=== PATIENT | female | born 1945 | race Caucasian/White ===

== ENCOUNTER 2017-06-06 18:40 | Inpatient (IN) | payer MEDICARE, SELFPAY ==
[2017-06-06 18:56] VITALS: BP 160/93; PULSE 90; RESP 18; TEMP 36.6; O2SAT 97; BMI 36.6
--- NOTE | 2017-06-06 19:13 | CT_ITS ---
CT head/brain wo con HISTORY: Mental status change, altered mental status, memory loss, confusion ITS.REASON: change in mental status ORDERING PHYSICIAN: Servando Esquivel MD PATIENT AGE: 71 years COMPARISON: None TECHNIQUE: Axial images obtained without contrast. Brain and bone windows reviewed. FINDINGS: No midline shift, mass effect, intracranial hemorrhage, hydrocephalus, or extra-axial fluid collection is evident. Decreased attenuation within the right caudate head and anterior limb of internal capsule consistent with old lacunar infarction. Mild ex vacuo dilatation of the anterior horn of the right lateral ventricle The calvarium has an unremarkable appearance. No mastoid effusion. No sinus air-fluid levels.. IMPRESSION: 1. No acute finding. 2. 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
[2017-06-06 19:32] LABS: ABG Base Excess -22.2 mmol/L (-2.4-2.3); ABG HCO3 6.4 mmhg (22.0-26.0); ABG Oxygen Saturation 95 % (90-100); ABG PO2 91.2 mmhg (80-100); ABG TCO2 6.9 mmhg (23-27)
[2017-06-06 19:33] LABS: ABG PH 7.17 mmol/L (7.35-7.45); Allen's Test Y; Oxygen R/A %; Source R/R
[2017-06-06 19:34] LABS: ABG PCO2 18.1 mmhg (35.0-45.0)
[2017-06-06 19:42] LABS: Basophils # 0.1 K/mm3 (0-0.2); Basophils % 0.3 % (0.1-2.0); Eosinophils % 0.1 % (0.1-12.0); Hematocrit 49.5 % (37.0-47.0); Hemoglobin 14.2 g/dL (12.2-16.2); Lymphocytes # 0.9 K/mm3 (0.7-4.5); Lymphocytes % 5.9 K/mm3 (10-50); Mean Corpuscular HGB Conc 28.6 g/dL (31.8-35.4); Mean Corpuscular Hemoglobin 29.7 pg (27.0-31.2); Mean Corpuscular Volume 103.8 fl (81-99); Monocytes # 0.7 K/mm3 (0.1-1.0); Monocytes % 4.6 % (1.7-9.3); Neutrophils # 14.3 K/mm3 (1.8-7.8); Platelet Count 439 K/mm3 (142-424); Red Blood Count 4.77 M/mm3 (4.20-5.40); Red Cell Distribution Width 12.8 % (11.5-17.5); White Blood Count 16.1 K/mm3 (4.8-10.8)
[2017-06-06 19:48] LABS: Lipase 75 u/L (73-393)
[2017-06-06 19:58] VITALS: BP 104/58; PULSE 96; RESP 16; O2SAT 97
[2017-06-06 20:04] LABS: MANUAL DIFFERENTIAL MANUAL DIFFERENTIAL (MANUAL DIFF)
[2017-06-06 20:06] LABS: Alanine Aminotransferase 30 U/L (12-78); Albumin Level 3.1 gm/dL (3.4-5.0); Albumin/Globulin Ratio 0.6 (1.1-1.8); Alkaline Phosphatase 157 U/L (46-116); Amylase 13 U/L (25-125); Anion Gap 41.9 mEq/L (5-15); Aspartate Amino Transferase 13 U/L (15-37); Bilirubin,Total 0.5 mg/dL (0.2-1.0); Blood Urea Nitrogen 53 mg/dL (7-18); CKMB Relative Index 3.9 U/L (0-4.0); Calcium 9.9 mg/dL (8.5-10.1); Chloride 89 mmol/L (98-107); Creatine Kinase 46 U/L (26-192); Creatine Kinase MB 1.8 mg/ml (0.0-3.6); Creatinine Clearance Estimated 31 mL/min (0-300); Estimated Glomerular Filt Rate 20 ml/min (>60); GFR (African American) 24 ML/MIN (>60); Globulin 4.9 gm/dl (1.3-3.2); Potassium 5.9 mmoL/L (3.5-5.1); Sodium 133 mmol/L (136-145); Troponin I < 0.02 ng/ml (0.00-0.06)
--- NOTE | 2017-06-06 20:06 | HMH.EDWEAK ---
ED Disposition Clinical Impression: DKA (diabetic ketoacidoses) Qualifiers: Diabetes mellitus type: type 2 Diabetes mellitus complication detail: without coma Qualified Code(s): E11.10 - Type 2 diabetes mellitus with ketoacidosis without coma Disposition: Admitted As Inpatient Condition on Discharge: Serious Referrals: Cintia Small PA [Primary Care Provider] - Time of Disposition: 20:06 - Critical Care Critical Care Time: Yes Attestation: On 06/06/17, the high probability of a clinically significant, sudden or life threatening deterioration of the following system(s) required my full and direct attention, intervention and personal management. The time I documented below is in addition to time spent performing reported procedures but includes the following listed in this critical care notation. Total Critical Care Time: 120 Vital system(s) involved:: Circulatory Failure, Metabolic Failure My critical care processes included: Assessment & monitoring of V/S, Initial and Re-exams, Data Review/Interpretation, Coordinating Care, Medication Orders and management, Documentation Medical Decision Making - Medical Records Medical records reviewed: Yes: I reviewed the patient's medical records. Vital Signs: 06/06/17 18:56 06/06/17 19:58 Temperature 98 F Temperature Source Oral Pulse Rate [Right Brachial] 90 96 H Respiratory Rate 18 16 Blood Pressure [Right Arm] 160/93 104/58 Blood Pressure Mean [Right Arm] 115 73 02 Sat by Pulse Oximetry 97 97 Oxygen Delivery Method Room Air Room Air - Lab Data Lab results reviewed: Yes: I reviewed the patient's lab results. Lab Results 06/06/17 19:20: WBC 16.1 H, RBC 4.77, Hgb 14.2, Hct 49.5 H, MCV 103.8 H, MCH 29.7, MCHC 28.6 L, RDW 12.8, Plt Count 439 H, MPV 9.0, Neut % (Auto) 89.0 H, Lymph % (Auto) 5.9 L, [facility] % (Auto) 4.6, Eos % (Auto) 0.1, Baso % (Auto) 0.3, Neut # (Auto) 14.3 H, Lymph # (Auto) 0.9, [facility] # (Auto) 0.7, Eos # (Auto) 0.0, Baso # (Auto) 0.1 06/06/17 19:20: Sodium 133 L, Potassium 5.9 H, Chloride 89 L, Carbon Dioxide 8 L*, Anion Gap 41.9 H, BUN 53 H, Creatinine 2.40 H, Estimated Creat Clear 31, Estimated GFR 20 L, Est GFR ( Amer) 24 L, Glucose 1012 H*, Calcium 9.9, Total Bilirubin 0.5, AST 13 L, ALT 30, Alkaline Phosphatase 157 H, Total Creatine Kinase 46, CK-MB (CK-2) 1.8, CK-MB (CK-2) Rel Index 3.9, Troponin I < 0.02, Total Protein 8.0, Albumin 3.1 L, Globulin 4.9 H, Albumin/Globulin Ratio 0.6 L, Amylase 13 L 06/06/17 19:20: Lipase 75 06/06/17 19:20: Acetone Level Moderate 06/06/17 19:30: Specimen Source R/r, O2 % R/a, ABG pH 7.17 L*, ABG pCO2 18.1 L, ABG pO2 91.2, ABG HCO3 6.4 L, ABG Total CO2 6.9 L, ABG O2 Saturation 95, ABG Base Excess -22.2 L, Onesimo Test Y Result diagrams: 06/06/17 19:20 06/06/17 19:20 Orders (Tests/Meds): ED MEDICATIONS Generic Name Dose Route Start Last Admin Trade Name Freq PRN Reason Stop Dose Admin Insulin Human Regular 100 unit 101 mls @ 2.02 mls/hr 06/06/17 19:45 / Sodium Chloride IV 07/06/17 19:44 .Q25H MYNOR Protocol 2 UNIT/HR Discontinued Medications Generic Name Dose Route Start Last Admin Trade Name Freq PRN Reason Stop Dose Admin Sodium Chloride 1,000 mls @ 999 mls/hr 06/06/17 19:15 06/06/17 19:20 Sod Chloride 0.9% 1000ml Bag IV 06/06/17 20:15 999 mls/hr .Q1H1M MYNOR Administration Insulin Human Regular 10 unit 06/06/17 19:08 06/06/17 19:21 Humulin R Insulin 100 Units/Ml 10ml Vial IVP 06/06/17 19:09 10 unit ONCE ONE Administration Ondansetron HCl 4 mg 06/06/17 19:04 06/06/17 19:20 Zofran 4mg/2ml Vial IV 06/06/17 19:05 4 mg ONCE ONE Administration Sodium Bicarbonate 4 meq 06/06/17 19:38 Sodium Bicarbonate 8.4% 50ml Vial IV 06/06/17 19:39 ONCE ONE Sodium Bicarbonate 50 meq 06/06/17 19:39 Sodium Bicarbonate 8.4% 50ml Syringe IV 06/06/17 19:40 ONCE ONE Sodium Bicarbonate 50 meq 06/06/17 19:40 Sodium Bicarbonat
[2017-06-06 20:19] LABS: Carbon Dioxide 8 mmol/L (21.0-32.0)
[2017-06-06 20:21] LABS: Glucose 1012 mg/dL (74-106)
--- NOTE | 2017-06-06 20:23 | PC.NURSE ---
critical lab glucose 1012 given to
[2017-06-06 20:33] LABS: Acetone, Serum (Rapid) Moderate (None Detect)
--- NOTE | 2017-06-06 20:59 | PC.NURSE ---
2039 spoke with Alec in pharmacy related to insulin drip.
--- NOTE | 2017-06-06 21:01 | PC.NURSE ---
2045 Insulin drip at 5 units per hour.
[2017-06-06 21:31] LABS: ABG Base Excess -20.6 mmol/L (-2.4-2.3); ABG HCO3 7.5 mmhg (22.0-26.0); ABG Oxygen Saturation 97 % (90-100); ABG PO2 99.4 mmhg (80-100); ABG TCO2 8.1 mmhg (23-27)
[2017-06-06 21:32] LABS: Allen's Test Y; Oxygen R/A %; Source R/R
[2017-06-06 21:33] LABS: ABG PCO2 19.9 mmhg (35.0-45.0); ABG PH 7.19 mmol/L (7.35-7.45)
[2017-06-06 21:40] LABS: Burr Cells 1+; Lymphocytes % 3 % (10-50); Monocytes % 3 % (2-9); Neutrophils % 86 % (42-76); Platelet Estimate Normal; Total Cells Counted 100
[2017-06-06 22:01] VITALS: BMI 36.6
--- NOTE | 2017-06-06 22:10 | PC.NURSE ---
called report to feli
[2017-06-06 22:22] VITALS: BP 171/77; PULSE 90; RESP 16; TEMP 36.7
[2017-06-06 22:30] VITALS: O2SAT 96
[2017-06-06 23:00] VITALS: BP 171/77; PULSE 95; O2SAT 97
[2017-06-06 23:43] LABS: Microscopic, Urine URINE MICROSCOPIC (MICROSCOPIC)
[2017-06-06 23:57] LABS: Glucose,Random 553 mg/dL (70-110)
[2017-06-07] VITALS (14 sets, daily range): BP systolic 114–194; BP diastolic 52–92; PULSE 71–90; RESP 14–20; TEMP 37.2; O2SAT 90–97; BMI 33.0
--- NOTE | 2017-06-07 00:37 | PC.NURSE ---
PT DOES NOT KNOW HER MEDS. STATED 30 AND A CHOLESTEROL MED BUT SHE DOES NOT KNOW THE NAMES OF MEDS OR WHEN SHE TOOK THEM LAST.
[2017-06-07 00:54] LABS: Appearance,Urine CLEAR (Clear); Bilirubin,Urine Negative (Negative); Blood, Urine TRACE-L (Negative); Color,Urine YELLOW (Yellow); Glucose,Urine (UA) 2+ (Negative); Ketones,Urine 3+ (Negative); Leukocyte Esterase,Urine Negative (Negative); Nitrate,Urine Negative (Negative); PH,Urine 5.5 (5.0-8.5); Protein,Urine TRACE (Negative); Urobilinogen,Urine 0.2 EU/dl (0.2)
[2017-06-07 01:14] LABS: POC Glucose,Bedside 468 mg/dL
--- NOTE | 2017-06-07 03:15 | PC.NURSE ---
PT IS ALERT WITH CONFUSION. SHE HAS BEEN PULLING OFF HER HEART MONITOR LEADS, AND TRYING TO GET OUT OF BED STATING SHE HAS TO PEE, AND YELLING OUT SOMEONE'S NAME. PT REMINDED THAT SHE HAS A F/C. HER URINE IS YELLOW, CLEAR. SHE HAS AN AREA ON HER LEFT LABIA THAT IS DRAINING BROWNISH BLOOD. CULTURE WAS SENT TO LAB. SHE CONTINUES ON INSULIN GTT.
[2017-06-07 03:38] LABS: POC Glucose,Bedside 342 mg/dL
[2017-06-07 03:59] LABS: Bacteria,Urine 1+ /lpf; WBC,Urine Occasional #/hpf (0-3)
[2017-06-07 05:29] LABS: POC Glucose,Bedside 238 mg/dL
[2017-06-07 06:29] LABS: POC Glucose,Bedside 195 mg/dL
--- NOTE | 2017-06-07 07:19 | PC.NURSE ---
report received at 0650 from s call rn
[2017-06-07 07:37] LABS: Acetone, Serum (Rapid) Small (None Detect)
--- NOTE | 2017-06-07 07:37 | HMH.PHAVTE ---
[facility] Pharmacy VTE Monitoring - Patient Demographics Admission date: 06/06/17 Report Date: 06/07/17 Time: 07:37 Allergies/Adverse Reactions: Patient Allergies No Known Drug Allergies Allergy (Unknown, Verified 06/06/17 19:01) Height: 1.57 m Weight: 81.6 kg Patient Problems: Current Active Problems DKA (diabetic ketoacidoses) (Acute) - VTE Risk Labs: VTE Related Lab Results Hgb 14.2 g/dL (12.2-16.2) 06/06/17 19:20 Hct 49.5 % (37.0-47.0) H 06/06/17 19:20 Plt Count 439 K/mm3 (142-424) H 06/06/17 19:20 BUN 53 mg/dL (7-18) H 06/06/17 19:20 Creatinine 2.40 mg/dL (0.55-1.02) H 06/06/17 19:20 Estimated Creat Clear 31 mL/min (0-300) 06/06/17 19:20 VTE Score: 3 VTE Risk Level: Low Risk Clinical Trial Participant: No - Prophylaxis VTE Prophylaxis Ordered?: Yes Types of VTE Prophylaxis: TEDS Knee High Location of Applied Device: Bilateral Lower Extremeties
[2017-06-07 07:42] LABS: POC Glucose,Bedside > 600 mg/dL
[2017-06-07 07:42] LABS: POC Glucose,Bedside > 600 mg/dL
[2017-06-07 07:42] LABS: POC Glucose,Bedside > 600 mg/dL
--- NOTE | 2017-06-07 08:42 | HMH.HP ---
*Admission Date: 06/06/17 *Chief complaint: vomiting *History of present illness: this iddm wf with vomiting and progressive decline This is a 71-year-old female, patient brought to the emergency room by family members after they realized that her glucometer would no longer read her fingerstick anymore (as being out of scale). Patient has been sick for the past 3 days, with intractable nausea and vomiting, unable to take any of her diabetic medications, unable to hold any solids food, or liquids down. Family is unsure of the patient's medications at this time, as patient is unable to give any details. [facility] History I have reviewed the patient's past medical history: Yes Medical History: Reports:: Diabetes Mellitus Type 2 Denies:: MRSA - *Social History Educational Level: Attended High School Smoking Status: Never smoker Alcohol Intake: never Occupational Status: retired Housing: house Household Members: family, children, friend(s) - Psychiatric History Expresses thoughts of harming self/others: None Suicide Plan Description: No Plan *Family Hx:: Stroke Review of Systems - Review of Systems Review of systems:: pertinent systems reviewed and negative unless documented below - Constitutional Reports chills, Reports fatigue, Denies fever(s) - Eyes Reports change in vision - ENT Denies sore throat - *Cardiovascular Denies chest pain at rest - *Respiratory Denies chest congestion - *Gastrointestinal Reports abdominal pain, Reports nausea, Reports vomiting - *Musculoskeletal Denies joint pain, Denies joint swelling - Integumentary/Breasts Denies rash - *Neurologic Reports weakness, Reports other (Lethargic), Denies seizure-like activity - Endocrine Reports increased thirst Meds Home Medications Medication Instructions Recorded Confirmed Type Unobtainable [Unobtainable] 06/07/17 06/07/17 History Allergies Allergy/AdvReac Type Severity Reaction Status Date / Time No Known Drug Allergies Allergy Unknown Verified 06/06/17 19:01 Exam Vital signs and Labs for Last 24 Hours: Temp Pulse Resp BP Pulse Ox 98 F 77 16 145/56 93 L 06/06/17 18:56 06/07/17 06:00 06/06/17 19:58 06/07/17 06:00 06/07/17 06:00 Laboratory Results - last 24 hr 06/06/17 22:41: Urine Color Yellow, Urine Appearance Clear, Urine pH 5.5, Ur Specific [place] 1.020, Urine Protein Trace, Urine Glucose (UA) 2+, Urine Ketones 3+, Urine Blood Trace-l, Urine Nitrate Negative, Urine Bilirubin Negative, Urine Urobilinogen 0.2, Ur Leukocyte Esterase Negative, Urine WBC Occasional, Urine Bacteria 1+ 06/06/17 23:07: POC Glucose > 600 06/06/17 23:30: Random Glucose 553 H* 06/07/17 01:03: POC Glucose 468 06/07/17 03:29: POC Glucose 342 06/07/17 05:22: POC Glucose 238 06/07/17 06:00: Acetone Level Small 06/07/17 06:23: POC Glucose 195 I & O for Last 24 hours: Intake & Output 06/04/17 06/05/17 06/06/17 06/07/17 11:59 11:59 11:59 11:59 Intake Total 1035 / 1035 Output Total 1340 / 1340 Balance -305 / -305 Weight 179 lb 14.355 oz - Constitutional no acute distress - *Routine HEENT Exam Head: Present: normocephalic, atraumatic Eye: Present: EOMI, PERRL ENT: Present: mucous membranes dry - *Routine Neck Exam Present: supple - *Routine Respiratory Exam Present: decreased breath sounds - *Routine Cardiovascular Exam Present: RRR, tachycardia - *Routine Abdominal Exam Present: soft. Absent: tenderness, distended - *Routine Extremities Exam Absent: calf tenderness - *Routine Skin Exam Comments: lt labial abscess - *Routine Neurological Exam Present: alert, oriented X3, CN II-XII intact - Routine Psychiatric Exam Present: normal affect H&P: Result - Labs Labs: Urine 06/06/17 Range/Units 22:41 Urine Color Yellow (Yellow) Urine Appearance Clear (Clear) Urine pH 5.5 (5.0-8.5) Ur Specific [place] 1.020 (1.005-1.030) Urine Prot
--- NOTE | 2017-06-07 09:32 | HMH.GYNCON ---
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 Ivey is a 71 year old female CC: Servando Esquivel MD Review of Systems - Review of Systems Review of systems:: pertinent systems reviewed and negative unless documented below - *Neurologic Reports weakness, Reports other (Lethargic), Denies seizure-like activity [facility] History I have reviewed the patient's past medical history: Yes Medical History: Reports:: Diabetes Mellitus Type 2 Denies:: MRSA - *Social History Educational Level: Attended High School Smoking Status: Never smoker Alcohol Intake: never Occupational Status: retired Housing: house Household Members: family, children, friend(s) - Psychiatric History Expresses thoughts of harming self/others: None Suicide Plan Description: No Plan *Family Hx:: Stroke Meds Home Medications Medication Instructions Recorded Confirmed Type Unobtainable [Unobtainable] 06/07/17 06/07/17 History Allergies Allergy/AdvReac Type Severity Reaction Status Date / Time No Known Drug Allergies Allergy Unknown Verified 06/06/17 19:01 LABEL FUSER TENDER - Exam Vital signs: Temp Pulse Resp BP Pulse Ox 98 F 77 16 145/56 93 L 06/06/17 18:56 06/07/17 06:00 06/06/17 19:58 06/07/17 06:00 06/07/17 06:00 - Constitutional no acute distress - Routine Exam Patient deferred: groin exam, perineal exam External: Present: discharge - Detailed Pelvic Exam Vulva: Present: lesion (She has erythema and foul-smelling discharge from the left vulva. She has induration) LABEL FUSER TENDER - Results - Labs CBC & Chem 7: 06/06/17 19:20 06/06/17 19:20 Labs: Urine 06/06/17 Range/Units 22:41 Urine Color Yellow (Yellow) Urine Appearance Clear (Clear) Urine pH 5.5 (5.0-8.5) Ur Specific [place] 1.020 (1.005-1.030) Urine Protein Trace (Negative) Urine Glucose (UA) 2+ (Negative) Assessment and Plan (1) Labial abscess Current visit: Yes Status: Acute Category: Medical Code(s): N76.4 - Abscess of vulva (2) IDDM (insulin dependent diabetes mellitus) Current visit: Yes Status: Acute Category: Medical Code(s): E11.9 - Type 2 diabetes mellitus without complications; Z79.4 - MCFP (current) use of insulin - Assessment and plan all Dx Assessment and Plan for all problems:: She has a draining vulvar lesion. Swabs have been taken. At this point in time since the lesion is draining and she is on vancomycin for his infection at this point in time I would not do anything. She might benefit from sits baths and I have asked the nurse to clean up the area with some peroxide and water.
--- NOTE | 2017-06-07 09:35 | P.CONS_ITS ---
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 Ivey is a 71 year old female CC: Servando Esquivel MD Review of Systems - Review of Systems Review of systems:: pertinent systems reviewed and negative unless documented below - *Neurologic Reports weakness, Reports other (Lethargic), Denies seizure-like activity [facility] History I have reviewed the patient's past medical history: Yes Medical History: Reports:: Diabetes Mellitus Type 2 Denies:: MRSA - *Social History Educational Level: Attended High School Smoking Status: Never smoker Alcohol Intake: never Occupational Status: retired Housing: house Household Members: family, children, friend(s) - Psychiatric History Expresses thoughts of harming self/others: None Suicide Plan Description: No Plan *Family Hx:: Stroke Meds Home Medications Medication Instructions Recorded Confirmed Type Unobtainable [Unobtainable] 06/07/17 06/07/17 History Allergies Allergy/AdvReac Type Severity Reaction Status Date / Time No Known Drug Allergies Allergy Unknown Verified 06/06/17 19:01 TAP OUT OPERATOR - Exam Vital signs: Temp Pulse Resp BP Pulse Ox 98 F 77 16 145/56 93 L 06/06/17 18:56 06/07/17 06:00 06/06/17 19:58 06/07/17 06:00 06/07/17 06:00 - Constitutional no acute distress - Routine Exam Patient deferred: groin exam, perineal exam External: Present: discharge - Detailed Pelvic Exam Vulva: Present: lesion (She has erythema and foul-smelling discharge from the left vulva. She has induration) TAP OUT OPERATOR - Results - Labs CBC & Chem 7: 06/06/17 19:20 06/06/17 19:20 Labs: Urine 06/06/17 Range/Units 22:41 Urine Color Yellow (Yellow) Urine Appearance Clear (Clear) Urine pH 5.5 (5.0-8.5) Ur Specific [place] 1.020 (1.005-1.030) Urine Protein Trace (Negative) Urine Glucose (UA) 2+ (Negative) Assessment and Plan (1) Labial abscess Current visit: Yes Status: Acute Category: Medical Code(s): N76.4 - Abscess of vulva (2) IDDM (insulin dependent diabetes mellitus) Current visit: Yes Status: Acute Category: Medical Code(s): E11.9 - Type 2 diabetes mellitus without complications; Z79.4 - alf (current) use of insulin - Assessment and plan all Dx Assessment and Plan for all problems:: She has a draining vulvar lesion. Swabs have been taken. At this point in time since the lesion is draining and she is on vancomycin for his infection at this point in time I would not do anything. She might benefit from sits baths and I have asked the nurse to clean up the area with some peroxide and water.
--- NOTE | 2017-06-07 09:39 | P.CONPHA_ITS ---
- Pharmacy Consult Date: 06/07/17 Time: 09:00 Referring provider: DR. ALEJANDRO Reason for Consult:: VANCOMYCIN DOSING Allergies and ADEs:: Allergies Allergy/AdvReac Type Severity Reaction Status Date / Time No Known Drug Allergies Allergy Unknown Verified 06/06/17 19:01 Home Medications:: Home Medications Medication Instructions Recorded Confirmed Type Unobtainable [Unobtainable] 06/07/17 06/07/17 History Height: 1.57 m Weight: 81.6 kg Laboratory Results:: Laboratory Results - last 24 hr 06/06/17 22:41: Urine Color Yellow, Urine Appearance Clear, Urine pH 5.5, Ur Specific [place] 1.020, Urine Protein Trace, Urine Glucose (UA) 2+, Urine Ketones 3+, Urine Blood Trace-l, Urine Nitrate Negative, Urine Bilirubin Negative, Urine Urobilinogen 0.2, Ur Leukocyte Esterase Negative, Urine WBC Occasional, Urine Bacteria 1+ 06/06/17 23:07: POC Glucose > 600 06/06/17 23:30: Random Glucose 553 H* 06/07/17 01:03: POC Glucose 468 06/07/17 03:29: POC Glucose 342 06/07/17 05:22: POC Glucose 238 06/07/17 06:00: Acetone Level Small 06/07/17 06:23: POC Glucose 195 Medical History: Reports:: Diabetes Mellitus Type 2 Denies:: MRSA Assessment and Plan (1) Labial abscess Current visit: Yes Status: Acute Category: Medical Code(s): N76.4 - Abscess of vulva (2) IDDM (insulin dependent diabetes mellitus) Current visit: Yes Status: Acute Category: Medical Code(s): E11.9 - Type 2 diabetes mellitus without complications; Z79.4 - USP (current) use of insulin - Assessment and plan all Dx Assessment and Plan for all problems:: BASED ON PATIENT'S FACTORS, RECOMMEND CONTINUING WITH VANCOMYCIN 1500 MG Q48H AT THIS TIME. WILL TIME NEXT DOSE FOR 06/08/17 AT 1300 PATIENT RECEIVED VANCOMYCIN 1750 MG ONCE IN ER OVERNIGHT. PHARMACY WILL FOLLOW DAILY AND ADJUST APPROPRIATE. DINORAH ARAIZA, PHARMD
[2017-06-07 10:35] LABS: POC Glucose,Bedside 175 mg/dL
[2017-06-07 10:53] LABS: POC Glucose,Bedside 208 mg/dL
[2017-06-07 12:43] LABS: POC Glucose,Bedside 261 mg/dL
[2017-06-07 13:59] LABS: Acetone, Serum (Rapid) Small (None Detect)
--- NOTE | 2017-06-07 14:34 | PC.NURSE ---
notified moises reeder of pt persistant hypertension. pt bp is 191/70. pt unsure of meds at home, daughter is unsure as well. (pt has only lived with her for 3 weeks.) pt is currently still on insulin drip. pt serum aceton at 1330 was small amount. new orders at this time give pt pepcid times 1.
--- NOTE | 2017-06-07 14:37 | PC.NURSE ---
moises reeder notified dr myers of pt bp that is 191/70. at this time no new orders, stated that the bp was noted.
[2017-06-07 16:33] LABS: POC Glucose,Bedside 284 mg/dL
[2017-06-07 16:33] LABS: POC Glucose,Bedside 286 mg/dL
[2017-06-07 17:57] LABS: POC Glucose,Bedside 272 mg/dL
[2017-06-07 19:37] LABS: POC Glucose,Bedside 278 mg/dL
[2017-06-07 21:18] LABS: POC Glucose,Bedside 223 mg/dL
[2017-06-07 23:59] LABS: POC Glucose,Bedside 176 mg/dL
[2017-06-08] VITALS (10 sets, daily range): BP systolic 164–211; BP diastolic 69–91; PULSE 65–83; RESP 15–20; TEMP 36.4–37.3; O2SAT 91–96
[2017-06-08 00:53] LABS: POC Glucose,Bedside 156 mg/dL
[2017-06-08 02:06] LABS: POC Glucose,Bedside 155 mg/dL
--- NOTE | 2017-06-08 03:39 | PC.NURSE ---
PT IS A&OX3. SHE HAS RESTED IN THE BED R/O THE SHIFT. SHE RECEIVED ZOFRAN FOR NAUSEA. NO VOMITING. LABIA ABCESS CLEANED VIA STERILE TECHINIQUE. SHE IS VOIDING PER F/C. URINE IS YELLOW, CLEAR. DENIES PAIN. VSS.
[2017-06-08 04:27] LABS: POC Glucose,Bedside 158 mg/dL
[2017-06-08 06:16] LABS: Acetone, Serum (Rapid) None Detected (None Detect)
[2017-06-08 06:25] LABS: POC Glucose,Bedside 135 mg/dL
[2017-06-08 06:32] LABS: Basophils % 0.2 % (0.1-2.0); Eosinophils % 0.2 % (0.1-12.0); Hemoglobin 11.2 g/dL (12.2-16.2); Lymphocytes # 1.2 K/mm3 (0.7-4.5); Lymphocytes % 10.1 K/mm3 (10-50); Mean Corpuscular HGB Conc 32.9 g/dL (31.8-35.4); Mean Corpuscular Hemoglobin 30.3 pg (27.0-31.2); Mean Corpuscular Volume 92.1 fl (81-99); Mean Platelet Volume 7.9 fl (7.4-10.4); Monocytes # 0.7 K/mm3 (0.1-1.0); Monocytes % 5.7 % (1.7-9.3); Neutrophils # 9.9 K/mm3 (1.8-7.8); Neutrophils % 83.7 % (37.0-80.0); Platelet Count 304 K/mm3 (142-424); Red Blood Count 3.69 M/mm3 (4.20-5.40); Red Cell Distribution Width 13.5 % (11.5-17.5); White Blood Count 11.8 K/mm3 (4.8-10.8)
[2017-06-08 06:50] LABS: Alanine Aminotransferase 23 U/L (12-78); Albumin Level 2.3 gm/dL (3.4-5.0); Albumin/Globulin Ratio 0.6 (1.1-1.8); Alkaline Phosphatase 96 U/L (46-116); Anion Gap 9.2 mEq/L (5-15); Aspartate Amino Transferase 16 U/L (15-37); Bilirubin,Total 0.2 mg/dL (0.2-1.0); Blood Urea Nitrogen 23 mg/dL (7-18); Carbon Dioxide 28 mmol/L (21.0-32.0); Chloride 114 mmol/L (98-107); Creatinine Clearance Estimated 62 mL/min (0-300); Creatinine,Serum 1.09 mg/dL (0.55-1.02); Estimated Glomerular Filt Rate 50 ml/min (>60); GFR (African American) 60 ML/MIN (>60); Globulin 3.8 gm/dl (1.3-3.2); Glucose 148 mg/dL (74-106); Potassium 3.2 mmoL/L (3.5-5.1); Sodium 148 mmol/L (136-145); Total Protein,Serum 6.1 gm/dL (6.4-8.2)
[2017-06-08 07:22] LABS: Calcium 7.7 mg/dL (8.5-10.1)
--- NOTE | 2017-06-08 07:29 | PC.NURSE ---
Received bedside report from S Call RN
[2017-06-08 11:06] LABS: POC Glucose,Bedside 276 mg/dL
--- NOTE | 2017-06-08 13:33 | PC.NURSE ---
1333 - Sawant catheter removed using aseptic tech. Latoya care given and pt instructed on use of BSC. Pt verbalizes understanding.
--- NOTE | 2017-06-08 13:54 | HMH.ACPN2 ---
Internal Medicine - PN: Subj *Date: 06/08/17 *Time: 08:15 Exam Vital signs and Labs for Last 24 Hours: Temp Pulse Resp BP Pulse Ox 98.8 F 73 16 211/81 93 L 06/08/17 12:17 06/08/17 12:17 06/08/17 12:17 06/08/17 12:17 06/08/17 12:17 Laboratory Results - last 24 hr 06/07/17 13:30: Acetone Level Small 06/07/17 14:07: POC Glucose 286 06/07/17 16:26: POC Glucose 284 06/07/17 17:49: POC Glucose 272 06/07/17 19:27: POC Glucose 278 06/07/17 21:10: POC Glucose 223 06/07/17 23:52: POC Glucose 176 06/08/17 00:45: POC Glucose 156 06/08/17 01:58: POC Glucose 155 06/08/17 04:18: POC Glucose 158 06/08/17 05:30: Acetone Level None detected 06/08/17 05:30: WBC 11.8 H D, RBC 3.69 L, Hgb 11.2 L, Hct 34.0 L, MCV 92.1, MCH 30.3, MCHC 32.9, RDW 13.5, Plt Count 304 D, MPV 7.9, Neut % (Auto) 83.7 H, Lymph % (Auto) 10.1, [place] % (Auto) 5.7, Eos % (Auto) 0.2, Baso % (Auto) 0.2, Neut # (Auto) 9.9 H, Lymph # (Auto) 1.2, [place] # (Auto) 0.7, Eos # (Auto) 0.0, Baso # (Auto) 0.0 06/08/17 05:30: Sodium 148 H, Potassium 3.2 L D, Chloride 114 H, Carbon Dioxide 28 D, Anion Gap 9.2, BUN 23 H D, Creatinine 1.09 H D, Estimated Creat Clear 62, Estimated GFR 50 L, Est GFR ( Amer) 60 D, Glucose 148 H, Calcium 7.7 L D, Total Bilirubin 0.2, AST 16, ALT 23, Alkaline Phosphatase 96, Total Protein 6.1 L, Albumin 2.3 L D, Globulin 3.8 H, Albumin/Globulin Ratio 0.6 L 06/08/17 06:17: POC Glucose 135 06/08/17 10:59: POC Glucose 276 I & O for Last 24 hours: Intake & Output 06/06/17 06/07/17 06/08/17 06/09/17 11:59 11:59 11:59 11:59 Intake Total 1035 / 1035 1738 / 1738 1080 / 1080 Output Total 1340 / 1340 1430 / 1430 2200 / 2200 Balance -305 / -305 308 / 308 -1120 / -1120 Weight 179 lb 14.355 oz 180 lb Microbiology Reports for the Last 24 Hours: Microbiology 06/06/17 22:46 Vaginal - Vaginal Gram Stain - Final 06/06/17 22:46 Vaginal - Vaginal Wound Culture - Preliminary 06/06/17 23:30 Blood Blood Culture - Preliminary NO GROWTH AFTER 24 HOURS - Constitutional no acute distress - *Routine HEENT Exam Head: Present: normocephalic Eye: Present: PERRL ENT: Present: mucous membranes moist - *Routine Neck Exam Present: supple, full ROM - *Routine Respiratory Exam Present: CTA bilaterally - *Routine Cardiovascular Exam Present: RRR - *Routine Abdominal Exam Present: soft, normoactive bowel sounds - *Routine Exam Patient deferred: groin exam, perineal exam External: Present: erythema Genitals image: 1 - reddness, inderation, no draiange noted Comments: forbes in place - *Routine Skin Exam Present: erythema - *Routine Neurological Exam Present: alert, oriented X3, CN II-XII intact - Routine Psychiatric Exam Present: normal affect, normal thought process Assessment and Plan (1) Labial abscess Current visit: Yes Status: Acute Category: Medical Code(s): N76.4 - Abscess of vulva (2) IDDM (insulin dependent diabetes mellitus) Current visit: Yes Status: Acute Category: Medical Code(s): E11.9 - Type 2 diabetes mellitus without complications; Z79.4 - [employer] (current) use of insulin
--- NOTE | 2017-06-08 13:58 | P.PN_ITS ---
Internal Medicine - PN: Subj *Date: 06/08/17 *Time: 08:15 Exam Vital signs and Labs for Last 24 Hours: Temp Pulse Resp BP Pulse Ox 98.8 F 73 16 211/81 93 L 06/08/17 12:17 06/08/17 12:17 06/08/17 12:17 06/08/17 12:17 06/08/17 12:17 Laboratory Results - last 24 hr 06/07/17 13:30: Acetone Level Small 06/07/17 14:07: POC Glucose 286 06/07/17 16:26: POC Glucose 284 06/07/17 17:49: POC Glucose 272 06/07/17 19:27: POC Glucose 278 06/07/17 21:10: POC Glucose 223 06/07/17 23:52: POC Glucose 176 06/08/17 00:45: POC Glucose 156 06/08/17 01:58: POC Glucose 155 06/08/17 04:18: POC Glucose 158 06/08/17 05:30: Acetone Level None detected 06/08/17 05:30: WBC 11.8 H D, RBC 3.69 L, Hgb 11.2 L, Hct 34.0 L, MCV 92.1, MCH 30.3, MCHC 32.9, RDW 13.5, Plt Count 304 D, MPV 7.9, Neut % (Auto) 83.7 H, Lymph % (Auto) 10.1, [place] % (Auto) 5.7, Eos % (Auto) 0.2, Baso % (Auto) 0.2, Neut # (Auto) 9.9 H, Lymph # (Auto) 1.2, [place] # (Auto) 0.7, Eos # (Auto) 0.0, Baso # (Auto) 0.0 06/08/17 05:30: Sodium 148 H, Potassium 3.2 L D, Chloride 114 H, Carbon Dioxide 28 D, Anion Gap 9.2, BUN 23 H D, Creatinine 1.09 H D, Estimated Creat Clear 62 , Estimated GFR 50 L, Est GFR ( Amer) 60 D, Glucose 148 H, Calcium 7.7 L D, Total Bilirubin 0.2, AST 16, ALT 23, Alkaline Phosphatase 96, Total Protein 6.1 L, Albumin 2.3 L D, Globulin 3.8 H, Albumin/Globulin Ratio 0.6 L 06/08/17 06:17: POC Glucose 135 06/08/17 10:59: POC Glucose 276 I & O for Last 24 hours: Intake & Output 06/06/17 06/07/17 06/08/17 06/09/17 11:59 11:59 11:59 11:59 Intake Total 1035 / 1035 1738 / 1738 1080 / 1080 Output Total 1340 / 1340 1430 / 1430 2200 / 2200 Balance -305 / -305 308 / 308 -1120 / -1120 Weight 179 lb 14.355 oz 180 lb Microbiology Reports for the Last 24 Hours: Microbiology 06/06/17 22:46 Vaginal - Vaginal Gram Stain - Final 06/06/17 22:46 Vaginal - Vaginal Wound Culture - Preliminary 06/06/17 23:30 Blood Blood Culture - Preliminary NO GROWTH AFTER 24 HOURS - Constitutional no acute distress - *Routine HEENT Exam Head: Present: normocephalic Eye: Present: PERRL ENT: Present: mucous membranes moist - *Routine Neck Exam Present: supple, full ROM - *Routine Respiratory Exam Present: CTA bilaterally - *Routine Cardiovascular Exam Present: RRR - *Routine Abdominal Exam Present: soft, normoactive bowel sounds - *Routine Exam Patient deferred: groin exam, perineal exam External: Present: erythema Genitals image: 1 - reddness, inderation, no draiange noted Comments: forbes in place - *Routine Skin Exam Present: erythema - *Routine Neurological Exam Present: alert, oriented X3, CN II-XII intact - Routine Psychiatric Exam Present: normal affect, normal thought process Assessment and Plan (1) Labial abscess Current visit: Yes Status: Acute Category: Medical Code(s): N76.4 - Abscess of vulva (2) IDDM (insulin dependent diabetes mellitus) Current visit: Yes Status: Acute Category: Medical Code(s): E11.9 - Type 2 diabetes mellitus without complications; Z79.4 - alf (current) use of insulin
--- NOTE | 2017-06-08 14:07 | PC.NURSE ---
Pt is a 71 year old female admitted on 06/06/17 with diagnosis of IDDM and labia abscess. Patient is A&Ox2 this shift. Pt is sedentary and keeps eyes closed most of this shift. (Pt reports that she sleeps most of the day at home.) She easily arouses to verbal stimuli. Appetite poor. VSS. Afebrile. Heart rate reg. Lungs CTA. Abd soft round and nontender. /c active BS x4 quads. Sawant cath removed this shift; Pt has not voided since removal. (L) labia with discoloration and induration. Painful upon palpation. Scant brown drng noted this shift. Latoya care given. (R) AC IV infusing 0.9%NaCl @ 125ml/hr /s difficulty. No s/s of infiltration/infection noted at insertion site. Knee high ANA PAULA hose in place to BLE. Pt denies any concerns at this time. Will continue to monitor pt's status.
[2017-06-08 16:27] LABS: POC Glucose,Bedside 370 mg/dL
--- NOTE | 2017-06-08 19:07 | PC.NURSE ---
Report given to Darius Patel RN
--- NOTE | 2017-06-08 19:57 | PC.NURSE ---
RN was made aware of high blood pressure.
[2017-06-08 23:22] LABS: POC Glucose,Bedside 325 mg/dL
[2017-06-09 04:00] VITALS: BP 210/77; PULSE 65; RESP 18; TEMP 36.8; O2SAT 94
--- NOTE | 2017-06-09 04:07 | PC.NURSE ---
PATIENT HAS SLEPT ON AND OFF THIS SHIFT. SHE GETS UP TO BSC WITH STAFF ASSIST X1 AND DOES WELL. SHE HAS HAD AN INTERMITTEN CROUPY COUGH. NO SOA OR DISTRESS. PATIENT HAS DENIED ANY PAIN. FSBS WAS ELEVATED. PATIENT HAD NO SLIDING SCALE COVERAGE, HOWEVER SHE DID RECEIVED AN ORDERED DOSE OF 40 UNITS 75/25 INSULIN. PATIENT IS CURRENTLY RESTING IN BED. NO OTHER PROBLEMS NOTED AT THIS TIME. VSS. WILL CONTINUE TO MONITOR. SAFETY MEASURES IN PLACE, CALL LIGHT IN REACH.
[2017-06-09 06:00] VITALS: BP 190/78
[2017-06-09 06:28] LABS: POC Glucose,Bedside 159 mg/dL
[2017-06-09 07:31] VITALS: BP 192/63; PULSE 73; RESP 18; TEMP 37.1; O2SAT 92
--- NOTE | 2017-06-09 07:50 | PC.NURSE ---
Report received from Mt Patel RN
[2017-06-09 09:10] LABS: Alanine Aminotransferase 26 U/L (12-78); Albumin Level 2.4 gm/dL (3.4-5.0); Albumin/Globulin Ratio 0.6 (1.1-1.8); Alkaline Phosphatase 101 U/L (46-116); Anion Gap 11.4 mEq/L (5-15); Aspartate Amino Transferase 16 U/L (15-37); Bilirubin,Total 0.3 mg/dL (0.2-1.0); Blood Urea Nitrogen 14 mg/dL (7-18); Calcium 7.7 mg/dL (8.5-10.1); Carbon Dioxide 30 mmol/L (21.0-32.0); Chloride 105 mmol/L (98-107); Creatinine Clearance Estimated 67 mL/min (0-300); Creatinine,Serum 0.84 mg/dL (0.55-1.02); Estimated Glomerular Filt Rate 67 ml/min (>60); GFR (African American) 81 ML/MIN (>60); Globulin 3.9 gm/dl (1.3-3.2); Glucose 263 mg/dL (74-106); Potassium 3.4 mmoL/L (3.5-5.1); Sodium 143 mmol/L (136-145); Total Protein,Serum 6.3 gm/dL (6.4-8.2)
--- NOTE | 2017-06-09 09:15 | HMH.ACPN2 ---
Internal Medicine - PN: Subj *Date: 06/09/17 *Time: 09:15 Exam Vital signs and Labs for Last 24 Hours: Temp Pulse Resp BP Pulse Ox 98.7 F 73 18 192/63 92 L 06/09/17 07:31 06/09/17 07:31 06/09/17 07:31 06/09/17 07:31 06/09/17 07:31 Laboratory Results - last 24 hr 06/08/17 10:59: POC Glucose 276 06/08/17 16:19: POC Glucose 370 06/08/17 21:16: POC Glucose 325 06/09/17 06:14: POC Glucose 159 06/09/17 08:50: Sodium 143, Potassium 3.4 L, Chloride 105, Carbon Dioxide 30, Anion Gap 11.4, BUN 14 D, Creatinine 0.84 D, Estimated Creat Clear 67, Estimated GFR 67, Est GFR ( Amer) 81 D, Glucose 263 H, Calcium 7.7 L, Total Bilirubin 0.3, AST 16, ALT 26, Alkaline Phosphatase 101, Total Protein 6.3 L, Albumin 2.4 L, Globulin 3.9 H, Albumin/Globulin Ratio 0.6 L I & O for Last 24 hours: Intake & Output 06/06/17 06/07/17 06/08/17 06/09/17 11:59 11:59 11:59 11:59 Intake Total 1035 / 1035 3287 / 3287 1560 / 1560 Output Total 1340 / 1340 1430 / 1430 3001 / 3001 Balance -305 / -305 1857 / 1857 -1441 / -1441 Weight 179 lb 14.355 oz 180 lb Microbiology Reports for the Last 24 Hours: Microbiology 06/06/17 22:46 Vaginal - Vaginal Gram Stain - Final 06/06/17 22:46 Vaginal - Vaginal Wound Culture - Preliminary 06/06/17 23:30 Blood Blood Culture - Preliminary NO GROWTH AFTER 48 HOURS - Constitutional no acute distress - *Routine HEENT Exam Head: Present: normocephalic Eye: Present: PERRL ENT: Present: mucous membranes moist - *Routine Neck Exam Present: supple, full ROM - *Routine Respiratory Exam Present: CTA bilaterally - *Routine Cardiovascular Exam Present: RRR - *Routine Abdominal Exam Present: soft, normoactive bowel sounds - *Routine Exam Patient deferred: groin exam Genitals image: 1 - induration, Comments: spoke with indira no surgery recommended - *Routine Skin Exam Present: intact - *Routine Neurological Exam Present: alert, oriented X3, CN II-XII intact - Routine Psychiatric Exam Present: normal affect Assessment and Plan (1) Labial abscess Current visit: Yes Status: Acute Category: Medical Code(s): N76.4 - Abscess of vulva (2) IDDM (insulin dependent diabetes mellitus) Current visit: Yes Status: Acute Category: Medical Code(s): E11.9 - Type 2 diabetes mellitus without complications; Z79.4 - penitentiary (current) use of insulin
[2017-06-09 09:18] LABS: White Blood Count 9.7 K/mm3 (4.8-10.8)
[2017-06-09 09:19] LABS: Hematocrit 35.2 % (37.0-47.0); Hemoglobin 11.5 g/dL (12.2-16.2); Mean Corpuscular HGB Conc 32.7 g/dL (31.8-35.4); Mean Corpuscular Hemoglobin 30.5 pg (27.0-31.2); Mean Corpuscular Volume 93.3 fl (81-99); Mean Platelet Volume 8.5 fl (7.4-10.4); Platelet Count 261 K/mm3 (142-424); Red Blood Count 3.77 M/mm3 (4.20-5.40); Red Cell Distribution Width 13.2 % (11.5-17.5)
[2017-06-09 09:20] LABS: Basophils % 0.4 % (0.1-2.0); Lymphocytes % 13.7 K/mm3 (10-50); Monocytes # 0.5 K/mm3 (0.1-1.0); Neutrophils # 7.8 K/mm3 (1.8-7.8)
[2017-06-09 09:21] LABS: Eosinophils # 0.1 K/mm3 (0.0-0.4); Lymphocytes # 1.3 K/mm3 (0.7-4.5)
[2017-06-09 12:04] LABS: POC Glucose,Bedside 127 mg/dL
[2017-06-09 14:23] LABS: Vancomycin,Trough 4.2 mcg/ml (10.0-20.0)
--- NOTE | 2017-06-09 15:51 | HMH.PHACONS ---
- Pharmacy Consult Date: 06/09/17 Time: 15:51 Referring provider: DR. ALEJANDRO Reason for Consult:: VANCOMYCIN TROUGH LEVEL Allergies and ADEs:: Allergies Allergy/AdvReac Type Severity Reaction Status Date / Time No Known Drug Allergies Allergy Unknown Verified 06/06/17 19:01 Home Medications:: Home Medications Medication Instructions Recorded Confirmed Type Insulin NPH Hum/Reg Insulin Hm 35 units SQ DAILY 06/07/17 06/07/17 History [Novolin 70-30 100 Unit/ml Vial] Insulin NPH Hum/Reg Insulin Hm 40 units SQ HS 06/07/17 06/07/17 History [Novolin 70-30 100 Unit/ml Vial] Height: 1.57 m Weight: 81.647 kg Laboratory Results:: Laboratory Results - last 24 hr 06/08/17 16:19: POC Glucose 370 06/08/17 21:16: POC Glucose 325 06/09/17 06:14: POC Glucose 159 06/09/17 08:50: WBC 9.7, RBC 3.77 L, Hgb 11.5 L, Hct 35.2 L, MCV 93.3, MCH 30.5, MCHC 32.7, RDW 13.2, Plt Count 261, MPV 8.5, Neut % (Auto) 80.0, Lymph % (Auto) 13.7, [place] % (Auto) 5.0, Eos % (Auto) 1.0, Baso % (Auto) 0.4, Neut # (Auto) 7.8, Lymph # (Auto) 1.3, [place] # (Auto) 0.5, Eos # (Auto) 0.1, Baso # (Auto) 0.0 06/09/17 08:50: Sodium 143, Potassium 3.4 L, Chloride 105, Carbon Dioxide 30, Anion Gap 11.4, BUN 14 D, Creatinine 0.84 D, Estimated Creat Clear 67, Estimated GFR 67, Est GFR ( Amer) 81 D, Glucose 263 H, Calcium 7.7 L, Total Bilirubin 0.3, AST 16, ALT 26, Alkaline Phosphatase 101, Total Protein 6.3 L, Albumin 2.4 L, Globulin 3.9 H, Albumin/Globulin Ratio 0.6 L 06/09/17 11:41: POC Glucose 127 06/09/17 13:34: Vancomycin Trough 4.2 L Medical History: Reports:: Diabetes Mellitus Type 2 Denies:: MRSA Assessment and Plan (1) Labial abscess Current visit: Yes Status: Acute Category: Medical Code(s): N76.4 - Abscess of vulva (2) IDDM (insulin dependent diabetes mellitus) Current visit: Yes Status: Acute Category: Medical Code(s): E11.9 - Type 2 diabetes mellitus without complications; Z79.4 - custodial (current) use of insulin - Assessment and plan all Dx Assessment and Plan for all problems:: BASED ON PATIENT'S VANCOMYCIN TROUGH LEVEL OF 4.2 MCG/ML AND IMPROVING RENAL FUNCTION, RECOMMEND CHANGING VANCOMYCIN DOSING TO 1500 MG Q18H AT THIS TIME. PHARMACY WILL FOLLOW DAILY AND ADJUST APPROPRIATE. DINORAH ARAIZA, PHARMD
[2017-06-09 15:57] VITALS: BP 218/84; PULSE 68; RESP 18; TEMP 36.6; O2SAT 92
[2017-06-09 16:01] LABS: POC Glucose,Bedside 72 mg/dL
--- NOTE | 2017-06-09 16:04 | DIET.NUTRFU ---
Pt with improving appetite with PO intake 100% at breakfast. RN explained that she took pt off mechanical soft chopped diet because it was restricting pt choices and pt is doing better on regular diabetic diet. Will continue to monitor.
--- NOTE | 2017-06-09 17:59 | PC.NURSE ---
Pt is a 71 year old female admitted on 06/06/17 with diagnosis of IDDM and labia abscess. Patient is A&Ox3 this shift. Pt has been up to the chair x1 this shift. Appetite poor. VSS (continues with SBP > 190 -- MD aware). Afebrile. Heart rate reg. Lungs CTA. Abd soft round and nontender. /c active BS x4 quads. (L) labia with discoloration and induration. Painful upon palpation. (R) AC IV infusing 0.9%NaCl @ 125ml/hr /s difficulty. No s/s of infiltration/infection noted at insertion site. Knee high ANA PAULA hose in place to BLE. Pt denies any concerns at this time. Bedside glucose @ 1630: 75 - pt given ice cream. Will continue to monitor pt's status.
[2017-06-09 19:33] VITALS: BP 214/89; PULSE 74; RESP 20; TEMP 37.1; O2SAT 96
--- NOTE | 2017-06-09 19:43 | PC.NURSE ---
rn made aware of elevated BP
[2017-06-09 20:20] VITALS: O2SAT 96
[2017-06-10 03:59] VITALS: BP 217/83; PULSE 72; RESP 20; TEMP 37.1; O2SAT 96
[2017-06-10 06:25] LABS: POC Glucose,Bedside 112 mg/dL
[2017-06-10 06:57] LABS: Basophils % 0.3 % (0.1-2.0); Eosinophils # 0.1 K/mm3 (0.0-0.4); Eosinophils % 0.9 % (0.1-12.0); Hematocrit 32.9 % (37.0-47.0); Hemoglobin 10.8 g/dL (12.2-16.2); Lymphocytes # 1.5 K/mm3 (0.7-4.5); Lymphocytes % 16.7 K/mm3 (10-50); Mean Corpuscular HGB Conc 32.8 g/dL (31.8-35.4); Mean Corpuscular Hemoglobin 29.8 pg (27.0-31.2); Monocytes # 0.5 K/mm3 (0.1-1.0); Monocytes % 5.8 % (1.7-9.3); Neutrophils # 6.7 K/mm3 (1.8-7.8); Neutrophils % 76.3 % (37.0-80.0); Platelet Count 268 K/mm3 (142-424); Red Blood Count 3.61 M/mm3 (4.20-5.40); Red Cell Distribution Width 13.3 % (11.5-17.5); White Blood Count 8.7 K/mm3 (4.8-10.8)
[2017-06-10 07:08] LABS: Alanine Aminotransferase 23 U/L (12-78); Albumin Level 2.1 gm/dL (3.4-5.0); Albumin/Globulin Ratio 0.6 (1.1-1.8); Alkaline Phosphatase 87 U/L (46-116); Anion Gap 9.5 mEq/L (5-15); Aspartate Amino Transferase 13 U/L (15-37); Bilirubin,Total 0.2 mg/dL (0.2-1.0); Blood Urea Nitrogen 8 mg/dL (7-18); Calcium 7.7 mg/dL (8.5-10.1); Carbon Dioxide 29 mmol/L (21.0-32.0); Chloride 108 mmol/L (98-107); Creatinine Clearance Estimated 67 mL/min (0-300); Creatinine,Serum 0.73 mg/dL (0.55-1.02); Estimated Glomerular Filt Rate 79 ml/min (>60); GFR (African American) 95 ML/MIN (>60); Globulin 3.7 gm/dl (1.3-3.2); Glucose 120 mg/dL (74-106); Sodium 144 mmol/L (136-145); Total Protein,Serum 5.8 gm/dL (6.4-8.2)
[2017-06-10 07:09] LABS: Potassium 2.5 mmoL/L (3.5-5.1)
[2017-06-10 07:21] VITALS: BP 203/67; PULSE 75; RESP 18; TEMP 37.1; O2SAT 98
--- NOTE | 2017-06-10 07:43 | PC.NURSE ---
PATIENT SEEMS TO HAVE SLEPT WELL THIS SHIFT. AMBULATES TO BATHROOM WITH STANDBY ASSIST AND DOES WELL. NO ACUTE CHANGES THIS SHIFT. VSS. NO OTHER PROBLEMS NOTED AT THIS TIME. WILL CONTINUE TO MONITOR.
[2017-06-10 08:00] VITALS: O2SAT 98
--- NOTE | 2017-06-10 08:30 | HMH.HPDC ---
General - General Admission date: 06/06/17 Discharge date: 06/10/17 *Admission Date: 06/06/17 *History of present illness: this iddm wf with vomiting and progressive decline This is a 71-year-old female, patient brought to the emergency room by family members after they realized that her glucometer would no longer read her fingerstick anymore (as being out of scale). Patient has been sick for the past 3 days, with intractable nausea and vomiting, unable to take any of her diabetic medications, unable to hold any solids food, or liquids down. Family is unsure of the patient's medications at this time, as patient is unable to give any details. [facility] History I have reviewed the patient's past medical history: Yes Medical History: Reports:: Diabetes Mellitus Type 2 Denies:: MRSA - *Social History Educational Level: Attended High School Smoking Status: Never smoker Alcohol Intake: never Occupational Status: retired Housing: house Household Members: family, children, friend(s) - Psychiatric History Expresses thoughts of harming self/others: None Suicide Plan Description: No Plan *Family Hx:: Stroke Review of Systems - Review of Systems Review of systems:: pertinent systems reviewed and negative unless documented below - Constitutional Reports chills, Reports fever(s) - Eyes Reports change in vision - ENT Denies sore throat - *Cardiovascular Denies chest pain - *Respiratory Denies cough - *Gastrointestinal Denies abdominal pain - *Genitourinary Reports pelvic pain, Reports vaginal odor - *Musculoskeletal Denies joint pain - Integumentary/Breasts Reports other (vaginal swelling) - *Neurologic Reports weakness, Reports other (Lethargic), Denies seizure-like activity - Psychiatric Reports anxiety Exam Vital signs and Labs for Last 24 Hours: Temp Pulse Resp BP Pulse Ox 98.7 F 75 18 203/67 98 06/10/17 07:21 06/10/17 07:21 06/10/17 07:21 06/10/17 07:21 06/10/17 07:21 Laboratory Results - last 24 hr 06/09/17 08:50: WBC 9.7, RBC 3.77 L, Hgb 11.5 L, Hct 35.2 L, MCV 93.3, MCH 30.5, MCHC 32.7, RDW 13.2, Plt Count 261, MPV 8.5, Neut % (Auto) 80.0, Lymph % (Auto) 13.7, [place] % (Auto) 5.0, Eos % (Auto) 1.0, Baso % (Auto) 0.4, Neut # (Auto) 7.8, Lymph # (Auto) 1.3, [place] # (Auto) 0.5, Eos # (Auto) 0.1, Baso # (Auto) 0.0 06/09/17 08:50: Sodium 143, Potassium 3.4 L, Chloride 105, Carbon Dioxide 30, Anion Gap 11.4, BUN 14 D, Creatinine 0.84 D, Estimated Creat Clear 67, Estimated GFR 67, Est GFR ( Amer) 81 D, Glucose 263 H, Calcium 7.7 L, Total Bilirubin 0.3, AST 16, ALT 26, Alkaline Phosphatase 101, Total Protein 6.3 L, Albumin 2.4 L, Globulin 3.9 H, Albumin/Globulin Ratio 0.6 L 06/09/17 11:41: POC Glucose 127 06/09/17 13:34: Vancomycin Trough 4.2 L 06/09/17 15:52: POC Glucose 72 06/10/17 06:08: WBC 8.7, RBC 3.61 L, Hgb 10.8 L, Hct 32.9 L, MCV 91.0, MCH 29.8, MCHC 32.8, RDW 13.3, Plt Count 268, MPV 8.0, Neut % (Auto) 76.3, Lymph % (Auto) 16.7, [place] % (Auto) 5.8, Eos % (Auto) 0.9, Baso % (Auto) 0.3, Neut # (Auto) 6.7, Lymph # (Auto) 1.5, [place] # (Auto) 0.5, Eos # (Auto) 0.1, Baso # (Auto) 0.0 06/10/17 06:08: Sodium 144, Potassium 2.5 L* D, Chloride 108 H, Carbon Dioxide 29, Anion Gap 9.5, BUN 8 D, Creatinine 0.73, Estimated Creat Clear 67, Estimated GFR 79, Est GFR ( Amer) 95, Glucose 120 H D, Calcium 7.7 L, Total Bilirubin 0.2, AST 13 L, ALT 23, Alkaline Phosphatase 87, Total Protein 5.8 L, Albumin 2.1 L D, Globulin 3.7 H, Albumin/Globulin Ratio 0.6 L 06/10/17 06:16: POC Glucose 112 I & O for Last 24 hours: Intake & Output 06/07/17 06/08/17 06/09/17 06/10/17 11:59 11:59 11:59 11:59 Intake Total 1035 / 1035 3287 / 3287 1560 / 1560 2477 / 2477 Output Total 1340 / 1340 1430 / 1430 3001 / 3001 700 / 700 Balance -305 / -305 1857 / 1857 -1441 / -1441 1777 / 1777 Weight 179 lb 14.355 oz 180 lb 180 lb Microbiology Reports for the Last 24 Hours: Microbiology 06/06/17 2
--- NOTE | 2017-06-10 08:34 | P.SWB_ITS ---
General - General Admission date: 06/06/17 Discharge date: 06/10/17 *Admission Date: 06/06/17 *History of present illness: this iddm wf with vomiting and progressive decline This is a 71-year-old female, patient brought to the emergency room by family members after they realized that her glucometer would no longer read her fingerstick anymore ( as being out of scale). Patient has been sick for the past 3 days, with intractable nausea and vomiting, unable to take any of her diabetic medications , unable to hold any solids food, or liquids down. Family is unsure of the patient's medications at this time, as patient is unable to give any details. [facility] History I have reviewed the patient's past medical history: Yes Medical History: Reports:: Diabetes Mellitus Type 2 Denies:: MRSA - *Social History Educational Level: Attended High School Smoking Status: Never smoker Alcohol Intake: never Occupational Status: retired Housing: house Household Members: family, children, friend(s) - Psychiatric History Expresses thoughts of harming self/others: None Suicide Plan Description: No Plan *Family Hx:: Stroke Review of Systems - Review of Systems Review of systems:: pertinent systems reviewed and negative unless documented below - Constitutional Reports chills, Reports fever(s) - Eyes Reports change in vision - ENT Denies sore throat - *Cardiovascular Denies chest pain - *Respiratory Denies cough - *Gastrointestinal Denies abdominal pain - *Genitourinary Reports pelvic pain, Reports vaginal odor - *Musculoskeletal Denies joint pain - Integumentary/Breasts Reports other (vaginal swelling) - *Neurologic Reports weakness, Reports other (Lethargic), Denies seizure-like activity - Psychiatric Reports anxiety Exam Vital signs and Labs for Last 24 Hours: Temp Pulse Resp BP Pulse Ox 98.7 F 75 18 203/67 98 06/10/17 07:21 06/10/17 07:21 06/10/17 07:21 06/10/17 07:21 06/10/17 07:21 Laboratory Results - last 24 hr 06/09/17 08:50: WBC 9.7, RBC 3.77 L, Hgb 11.5 L, Hct 35.2 L, MCV 93.3, MCH 30.5 , MCHC 32.7, RDW 13.2, Plt Count 261, MPV 8.5, Neut % (Auto) 80.0, Lymph % (Auto ) 13.7, [place] % (Auto) 5.0, Eos % (Auto) 1.0, Baso % (Auto) 0.4, Neut # (Auto) 7.8, Lymph # (Auto) 1.3, [place] # (Auto) 0.5, Eos # (Auto) 0.1, Baso # (Auto) 0.0 06/09/17 08:50: Sodium 143, Potassium 3.4 L, Chloride 105, Carbon Dioxide 30, Anion Gap 11.4, BUN 14 D, Creatinine 0.84 D, Estimated Creat Clear 67, Estimated GFR 67, Est GFR ( Amer) 81 D, Glucose 263 H, Calcium 7.7 L, Total Bilirubin 0.3, AST 16, ALT 26, Alkaline Phosphatase 101, Total Protein 6.3 L, Albumin 2.4 L, Globulin 3.9 H, Albumin/Globulin Ratio 0.6 L 06/09/17 11:41: POC Glucose 127 06/09/17 13:34: Vancomycin Trough 4.2 L 06/09/17 15:52: POC Glucose 72 06/10/17 06:08: WBC 8.7, RBC 3.61 L, Hgb 10.8 L, Hct 32.9 L, MCV 91.0, MCH 29.8 , MCHC 32.8, RDW 13.3, Plt Count 268, MPV 8.0, Neut % (Auto) 76.3, Lymph % (Auto ) 16.7, [place] % (Auto) 5.8, Eos % (Auto) 0.9, Baso % (Auto) 0.3, Neut # (Auto) 6.7, Lymph # (Auto) 1.5, [place] # (Auto) 0.5, Eos # (Auto) 0.1, Baso # (Auto) 0.0 06/10/17 06:08: Sodium 144, Potassium 2.5 L* D, Chloride 108 H, Carbon Dioxide 29, Anion Gap 9.5, BUN 8 D, Creatinine 0.73, Estimated Creat Clear 67, Estimated GFR 79, Est GFR ( Amer) 95, Glucose 120 H D, Calcium 7.7 L, Total Bilirubin 0.2, AST 13 L, ALT 23, Alkaline Phosphatase 87, Total Protein 5.8 L, Albumin 2.1 L D, Globulin 3.7 H, Albumin/Globulin Ratio 0.6
--- NOTE | 2017-06-10 13:22 | PC.NURSE ---
Pt placed on [place] to infuse potassium IV. Pt strip during this time remained NS. Rate 80, MI 0.16, QRS 0.08 and QT 0.40
[2017-06-10 16:37] LABS: POC Glucose,Bedside 257 mg/dL
[2017-06-12 07:35] LABS: POC Glucose,Bedside > 600 mg/dL
[2017-06-12 07:35] LABS: POC Glucose,Bedside 168 mg/dL
[2017-06-12 07:35] LABS: POC Glucose,Bedside 161 mg/dL
== END 2017-06-10 12:45 | disposition home or self-care (01) | DRG 638 ==
LOC: ER 20:06 → ICU 22:00 → 2ND 06-08 18:09
PROVIDERS: Nurse Practitioner Family; Admitting Provider Emergency Medicine; Emergency Provider Emergency Medicine; Family Provider Emergency Medicine; PCP Physician Assistant; Visit Provider Emergency Medicine
DX: E11.10 Type 2 diabetes mellitus with ketoacidosis without coma (principal); N76.4 Abscess of vulva; E87.6 Hypokalemia; Z79.4 Long term (current) use of insulin
CPT/HCPCS: 36415; 70450; 80053; 80202; 81001; 82009; 82150; 82550; 82553; 82803; 82947; 82962; 83690; 84484; 85007; 85025; 87040; 87070; 87077; 87186; 87205; 93005; 93041; 96365; 96367; 96375; 99284; 99285; J2405; J3370

== ENCOUNTER → 2017-07-04 16:29 | Outpatient (CLI) | payer MEDICARE, SELFPAY ==
--- NOTE | 2017-07-04 16:30 | MM_ITS ---
MM Dig screening mamm BI w/CAD CAD Screening ORDERING PHYSICIAN : Servando Esquivel MD PATIENT AGE: 71 years GENDER: Female INDICATION: No hormones No new complaints.Family history.? Sister with breast cancer. COMPARISON: Previous mammograms: September 2010 and October 2008 TECHNIQUE: Standard CC and MLO images were obtained. R2 CAD reviewed. ======== FINDINGS: Low-density breast with no dominant mass nor suspicious calcifications. No significant appearing architectural distortion. Similar appearance to previous studies. Scattered normal calcifications at the medial right and left breast. Minimal vascular calcifications bilateral no new areas concern. Bilateral follow-up in one year recommended. . Right breast.. Similar architecture compared to 2009 The small calcifications noted on the right I have remained stable and again most likely benign skin calcifications some with central lucency reflecting such IMPRESSION: Stable bilateral mammogram with no significant new findings. BI-RADS Category: 2 Benign Finding(s) RECOMMENDED FOLLOW-UP: 1YR - 1 YEAR FOLLOW-UP (A letter has been sent to the patient regarding results of the study.)
== END ==
PROVIDERS: Family Provider Emergency Medicine; PCP Emergency Medicine; Visit Provider Emergency Medicine
DX: Z12.31 Encounter for screening mammogram for malignant neoplasm of breast (principal)
CPT/HCPCS: 77067

== ENCOUNTER 2017-07-11 08:39 | Day surgery (SDC) | payer MEDICARE, SELFPAY ==
[2017-07-10 14:11] VITALS: BMI 34.7
[2017-07-11 10:08] VITALS: BP 202/70; PULSE 69; RESP 20; TEMP 36.6; O2SAT 97
[2017-07-11 10:35] LABS: POC Glucose,Bedside 329 mg/dL (70-110)
== END 2017-07-11 10:30 | disposition home or self-care (01) ==
LOC: OUTP 08:41
PROVIDERS: Family Provider Emergency Medicine; PCP Emergency Medicine; Visit Provider Ophthalmology
PROC: (CPT 66821; principal; 2017-07-11 10:30)
DX: H26.491 Other secondary cataract, right eye (principal); E13.10 Other specified diabetes mellitus with ketoacidosis without coma
CPT/HCPCS: 66821; 82962

== ENCOUNTER → 2017-07-17 10:47 | Outpatient (POV) | payer MEDICARE, SELFPAY | PROVIDERS: Family Provider Emergency Medicine; PCP Emergency Medicine; Visit Provider Specialist | DX: R20.2 Paresthesia of skin (principal); R20.0 Anesthesia of skin | CPT/HCPCS: 95886; 95910 ==

== ENCOUNTER → 2017-09-14 15:49 | Outpatient (REF) | payer MEDICARE, SELFPAY ==
[2017-09-14 18:37] LABS: Basophils # 0.1 K/mm3 (0-0.2); Eosinophils # 0.2 K/mm3 (0.0-0.4); Eosinophils % 2.1 % (0.1-12.0); Hematocrit 40.8 % (37.0-47.0); Hemoglobin 13.6 g/dL (12.2-16.2); Lymphocytes % 24.9 K/mm3 (10-50); Mean Corpuscular HGB Conc 33.2 g/dL (31.8-35.4); Mean Corpuscular Hemoglobin 30.7 pg (27.0-31.2); Mean Corpuscular Volume 92.3 fl (81-99); Mean Platelet Volume 8.3 fl (7.4-10.4); Monocytes # 0.5 K/mm3 (0.1-1.0); Monocytes % 5.7 % (1.7-9.3); Neutrophils # 5.4 K/mm3 (1.8-7.8); Neutrophils % 66.4 % (37.0-80.0); Platelet Count 350 K/mm3 (142-424); Red Blood Count 4.42 M/mm3 (4.20-5.40); White Blood Count 8.2 K/mm3 (4.8-10.8)
[2017-09-14 19:09] LABS: Alanine Aminotransferase 27 U/L (12-78); Alkaline Phosphatase 119 U/L (46-116); Bilirubin,Total 0.3 mg/dL (0.2-1.0); Free T4 (Free Thyroxine) 1.03 ng/dl (0.76-1.46); Glucose 272 mg/dL (74-106); Sodium 139 mmol/L (136-145); Total Protein,Serum 7.2 gm/dL (6.4-8.2)
[2017-09-14 19:10] LABS: Albumin Level 3.5 gm/dL (3.4-5.0); Albumin/Globulin Ratio 0.9 (1.1-1.8); Aspartate Amino Transferase 16 U/L (15-37); Blood Urea Nitrogen 25 mg/dL (7-18); Calcium 9.8 mg/dL (8.5-10.1); Carbon Dioxide 26 mmol/L (21.0-32.0); Chloride 102 mmol/L (98-107); Chol/HDL Ratio 7.1 (1-3.5); Cholesterol 304 mg/dL (140-200); Creatinine,Serum 0.96 mg/dL (0.55-1.02); Estimated Glomerular Filt Rate 57 ml/min (>60); GFR (African American) 69 ML/MIN (>60); Globulin 3.7 gm/dl (1.3-3.2); HDL Cholesterol 43 mg/dL (29-89); LDL Cholesterol 204 mg/dL (0-130); Thyroid Stimulating Hormone 1.21 uIU/ml (0.358-3.740); Triglycerides 283 mg/dL (30-200); VLDL Cholesterol 57 mg/dL (0-40)
[2017-09-14 19:46] LABS: Hemoglobin A1C 11.5 % (0.0-7.0)
[2017-09-16 18:39] LABS: Vitamin D 25 Hydroxy 21.6 ng/mL (30.0-100.0)
== END ==
LOC: LAB 15:49
PROVIDERS: Visit Provider Nurse Practitioner Family
DX: E11.9 Type 2 diabetes mellitus without complications (principal); R53.83 Other fatigue
CPT/HCPCS: 80053; 80061; 82652; 83036; 84439; 84443; 85025

== ENCOUNTER → 2018-06-21 18:14 | Outpatient (CLI) | payer MEDICARE, SELFPAY ==
[2018-06-21 18:57] LABS: Alanine Aminotransferase 29 U/L (12-78); Albumin Level 3.4 gm/dL (3.4-5.0); Alkaline Phosphatase 94 U/L (46-116); Anion Gap 13.8 mEq/L (5-15); Aspartate Amino Transferase 10 U/L (15-37); Bilirubin,Total 0.3 mg/dL (0.2-1.0); Blood Urea Nitrogen 25 mg/dL (7-18); Calcium 9.1 mg/dL (8.5-10.1); Carbon Dioxide 27 mmol/L (21.0-32.0); Chloride 104 mmol/L (98-107); Creatinine,Serum 1.05 mg/dL (0.55-1.02); Estimated Glomerular Filt Rate 52 ml/min (>60); GFR (African American) 63 ML/MIN (>60); Globulin 3.4 gm/dl (1.3-3.2); Glucose 160 mg/dL (74-106); Potassium 4.8 mmoL/L (3.5-5.1); Sodium 140 mmol/L (136-145); Total Protein,Serum 6.8 gm/dL (6.4-8.2)
[2018-06-21 19:54] LABS: Basophils # 0.1 K/mm3 (0-0.2); Basophils % 0.9 % (0.1-2.0); Eosinophils # 0.2 K/mm3 (0.0-0.4); Eosinophils % 2.4 % (0.1-12.0); Hematocrit 38.2 % (37.0-47.0); Hemoglobin 12.7 g/dL (12.2-16.2); Lymphocytes % 27.1 % (10-50); Mean Corpuscular HGB Conc 33.3 g/dL (31.8-35.4); Mean Corpuscular Hemoglobin 30.4 pg (27.0-31.2); Mean Corpuscular Volume 91.2 fl (81-99); Mean Platelet Volume 9.3 fl (7.4-10.4); Monocytes # 0.5 K/mm3 (0.1-1.0); Monocytes % 6.9 % (1.7-9.3); Neutrophils # 4.5 K/mm3 (1.8-7.8); Neutrophils % 62.6 % (37.0-80.0); Platelet Count 341 K/mm3 (142-424); Red Blood Count 4.19 M/mm3 (4.20-5.40); Red Cell Distribution Width 12.8 % (11.5-17.5); White Blood Count 7.2 K/mm3 (4.8-10.8)
== END ==
PROVIDERS: Visit Provider Physician Assistant
DX: E13.10 Other specified diabetes mellitus with ketoacidosis without coma (principal); Z79.4 Long term (current) use of insulin
CPT/HCPCS: 80053; 83036; 85025

== ENCOUNTER → 2018-12-17 16:51 | Outpatient (CLI) | payer MEDICARE, SELFPAY ==
[2018-12-17 17:22] LABS: Hemoglobin A1C 7.6 % (0.0-7.0)
[2018-12-17 19:07] LABS: Anion Gap 16.5 mEq/L (5-15); Blood Urea Nitrogen 29 mg/dL (7-18); Calcium 9.2 mg/dL (8.5-10.1); Carbon Dioxide 25 mmol/L (21.0-32.0); Chloride 106 mmol/L (98-107); Creatinine,Serum 1.03 mg/dL (0.55-1.02); Estimated Glomerular Filt Rate 53 ml/min (>60); GFR (African American) 64 ML/MIN (>60); Potassium 4.5 mmoL/L (3.5-5.1); Sodium 143 mmol/L (136-145)
[2018-12-17 20:46] LABS: Glucose 48 mg/dL (74-106)
== END ==
PROVIDERS: Visit Provider Emergency Medicine
DX: E11.9 Type 2 diabetes mellitus without complications (principal); Z79.4 Long term (current) use of insulin
CPT/HCPCS: 80048; 83036

== ENCOUNTER 2020-01-10 16:35 | Emergency (ER) | payer MEDICARE, SELFPAY ==
[2020-01-10 16:36] VITALS: BP 203/92; BP 214/79; PULSE 69; RESP 16; RESP 18; TEMP 36.6; TEMP 37.2; O2SAT 98; BMI 34.5; BMI 34.9
[2020-01-10 17:05] VITALS: BP 220/85; PULSE 81; RESP 21; O2SAT 98; BMI 34.9
--- NOTE | 2020-01-10 17:24 | PC.NURSE ---
Dental Nurse admitting pt at this time.
--- NOTE | 2020-01-10 17:42 | PC.NURSE ---
v/s delayed due to IV insertion attempts
--- NOTE | 2020-01-10 17:43 | HMH.EDWEAK ---
ED Disposition Clinical Impression: Hypertension Qualifiers: Hypertension type: essential hypertension Qualified Code(s): I10 - Essential (primary) hypertension Disposition: Home, Self-Care Condition on Discharge: Good Referrals: Cintia Small PA [Primary Care Provider] - - Critical Care Critical Care Time: No Attestation: On 01/10/20, the high probability of a clinically significant, sudden or life threatening deterioration of the following system(s) required my full and direct attention, intervention and personal management. The time I documented below is in addition to time spent performing reported procedures but includes the following listed in this critical care notation. Medical Decision Making - Medical Records Medical records reviewed: Yes: I reviewed the patient's medical records. - [place] Inquiry Pt receiving controlled substance: No Vital Signs: 01/10/20 16:36 01/10/20 17:05 01/10/20 17:59 Temperature 98 F Temperature Source Oral Pulse Rate [Radial] 69 81 70 Respiratory Rate 16 21 Blood Pressure [Left Arm] 220/85 H Blood Pressure [Right Arm] 214/79 H 179/63 H Blood Pressure Mean [Left Arm] 130 Blood Pressure Mean [Right Arm] 124 101 Blood Pressure Source [Left Arm] Automatic Cuff Blood Pressure Source [Right Arm] Automatic Cuff Blood Pressure Position [Left Arm] Sitting Blood Pressure Position [Right Arm] Sitting Sitting 02 Sat by Pulse Oximetry 98 98 98 Oxygen Delivery Method Room Air Room Air Room Air - Lab Data Lab Results 01/10/20 17:50: WBC 7.0, RBC 4.11 L, Hgb 12.0 L, Hct 35.9 L, MCV 87.5, MCH 29.1, MCHC 33.3, RDW 14.0, Plt Count 305, MPV 8.1, Neut % (Auto) 63.8, Lymph % (Auto) 25.3, [place] % (Auto) 6.7, Eos % (Auto) 3.3, Baso % (Auto) 0.8, Neut # (Auto) 4.5, Lymph # (Auto) 1.8, [place] # (Auto) 0.5, Eos # (Auto) 0.2, Baso # (Auto) 0.1 01/10/20 17:50: Sodium 141, Potassium 4.5, Chloride 109 H, Carbon Dioxide 23, Anion Gap 13.5, BUN 21 H, Creatinine 0.90, Estimated Creat Clear 66, Estimated GFR 61, Est GFR ( Amer) 74, Glucose 108 H, Calcium 9.1 Result diagrams: 01/10/20 17:50 01/10/20 17:50 Orders (Tests/Meds): ED MEDICATIONS Discontinued Medications Generic Name Dose Route Start Last Admin Trade Name Aundrea PRN Reason Stop Dose Admin Hydralazine HCl 10 mg 01/10/20 17:15 01/10/20 17:18 Apresoline 20mg/Ml 1ml Vial IV 01/10/20 17:16 10 mg ONCE ONE Administration - Reevaluation(s) Time: 18:11 Reevaluation #1: On reevaluation, patient remains asymptomatic. Blood pressures improved. Patient will resume her normal outpatient regimen. Needs to follow-up with PCP in 48 hours. Given strict return precautions. Verbalized understanding. Medical Decision Narrative: Patient sent in to ER for evaluation for elevated blood pressure. Likely secondary to medication noncompliance. Patient asymptomatic. Treated and placed on monitoring. Weakness HPI - General Chief complaint: Weakness Stated complaint: BP High Time Seen by Provider: 01/10/20 16:45 Mode of Arrival: Ambulatory Source of Information: Patient Limitations: No Limitations Description of Symptoms (Recalled from ER Triage Doc. by RN): [facility] - History of Present Illness HPI Narrative: 74 y/o Female presenting with elevated blood pressure. Patient ran out of blood pressure medication. Was sent in by home health for evaluation. Patient is asymptomatic at this time. Denies any chest pain or shortness of breath. No headache, weakness, dizziness, change in vision. Denies any abdominal pain or vomiting. No fevers or chills. Patient's family went to [place] pickup her medication refill which was called in by the primary physician. - Related Data Previous Rx's Medication Instructions Recorded cholecalciferol (vitamin D3) 125 5,000 unit PO DAILY #30 cap 06/21/18 mcg (5,000 unit) capsule ergocalciferol (vitamin D2) 1,250 50,000 unit PO QWEEK #4 cap 06/21/18 m
[2020-01-10 17:57] LABS: Basophils # 0.1 K/mm3 (0-0.2); Basophils % 0.8 % (0.1-2.0); Eosinophils # 0.2 K/mm3 (0.0-0.4); Eosinophils % 3.3 % (0.1-12.0); Hematocrit 35.9 % (37.0-47.0); Lymphocytes # 1.8 K/mm3 (0.7-4.5); Lymphocytes % 25.3 % (10-50); Mean Corpuscular HGB Conc 33.3 g/dL (31.8-35.4); Mean Corpuscular Hemoglobin 29.1 pg (27.0-31.2); Mean Corpuscular Volume 87.5 fl (81-99); Mean Platelet Volume 8.1 fl (7.4-10.4); Monocytes # 0.5 K/mm3 (0.1-1.0); Monocytes % 6.7 % (1.7-9.3); Neutrophils # 4.5 K/mm3 (1.8-7.8); Neutrophils % 63.8 % (37.0-80.0); Platelet Count 305 K/mm3 (142-424); Red Blood Count 4.11 M/mm3 (4.20-5.40)
[2020-01-10 17:59] VITALS: BP 179/63; PULSE 70; O2SAT 98
[2020-01-10 18:04] LABS: Chloride 109 mmol/L (98-107); Potassium 4.5 mmoL/L (3.5-5.1); Sodium 141 mmol/L (136-145)
[2020-01-10 18:07] LABS: Anion Gap 13.5 mEq/L (5-15); Blood Urea Nitrogen 21 mg/dl (7-17); Calcium 9.1 mg/dl (8.4-10.2); Carbon Dioxide 23 mmol/L (22.0-30.0); Creatinine Clearance Estimated 66 mL/min (50-200); Estimated Glomerular Filt Rate 61 ml/min (>60); GFR (African American) 74 ML/MIN (>60); Glucose 108 mg/dl (74-100)
[2020-01-10 18:16] VITALS: BP 176/61; PULSE 77; RESP 18; TEMP 36.7; O2SAT 98
== END 2020-01-10 18:19 | disposition home or self-care (01) ==
LOC: UTC 16:47 → ER 17:05
PROVIDERS: Emergency Medicine; Emergency Provider Nurse Practitioner Family; PCP Physician Assistant
DX: I16.0 Hypertensive urgency (principal); R53.1 Weakness; E11.9 Type 2 diabetes mellitus without complications; Z79.4 Long term (current) use of insulin; E78.5 Hyperlipidemia, unspecified; Z90.79 Acquired absence of other genital organ(s); Z79.899 Other long term (current) drug therapy
CPT/HCPCS: 80048; 85025; 96374; 99282

== ENCOUNTER → 2020-01-15 14:02 | Outpatient (CLI) | payer MEDICARE, SELFPAY ==
[2020-01-15 14:29] LABS: Cholesterol 244 mg/dl (140-200); HDL Cholesterol 49 mg/dl (40-60); Triglycerides 268 mg/dl (30-150); VLDL Cholesterol 54 mg/dL (0-40)
[2020-01-15 14:41] LABS: Direct LDL Cholesterol 151.11 mg/dL (100-129)
[2020-01-15 14:46] LABS: 25-OH Vitamin D, Total 15.7 ng/mL (30-100)
[2020-01-15 14:47] LABS: Free T4 (Free Thyroxine) 1.19 ng/dl (0.78-2.19)
[2020-01-15 15:00] LABS: Thyroid Stimulating Hormone 1.28 uIU/mL (0.465-4.68)
== END ==
PROVIDERS: Visit Provider Emergency Medicine
DX: Z79.4 Long term (current) use of insulin; E55.9 Vitamin D deficiency, unspecified; E13.10 Other specified diabetes mellitus with ketoacidosis without coma
CPT/HCPCS: 80061; 82306; 83036; 84439; 84443

== ENCOUNTER → 2020-05-26 14:28 | Outpatient (CLI) | payer MEDICARE, SELFPAY ==
[2020-05-26 15:35] LABS: Anion Gap 12.6 mEq/L (5-15); Blood Urea Nitrogen 29 mg/dl (7-17); Calcium 9.4 mg/dl (8.4-10.2); Carbon Dioxide 28 mmol/L (22.0-30.0); Chloride 104 mmol/L (98-107); Estimated Glomerular Filt Rate 37 ml/min (>60); GFR (African American) 45 ML/MIN (>60); Glucose 210 mg/dl (74-100); Potassium 4.6 mmoL/L (3.5-5.1); Sodium 140 mmol/L (136-145)
== END ==
PROVIDERS: Visit Provider Emergency Medicine
DX: E11.10 Type 2 diabetes mellitus with ketoacidosis without coma (principal); N18.30 Chronic kidney disease, stage 3 unspecified; Z79.4 Long term (current) use of insulin
CPT/HCPCS: 80048

== ENCOUNTER 2020-06-06 09:55 | Observation (INO) | payer MEDICARE, SELFPAY ==
[2020-06-06] VITALS (19 sets, daily range): BP systolic 95–233; BP diastolic 44–88; PULSE 59–76; RESP 16–22; TEMP 36.3–36.7; O2SAT 94–99; BMI 36.6; BMI 34.8
--- NOTE | 2020-06-06 | IR_ITS ---
APPROVED REPORT Patient Location: [facility] Salesperson: JACKIE Villagomez RT (R) PROCEDURES Left femoral arterial access Catheter placement in the right common iliac arteries Right common iliac artery iliofemoral angiogram Catheter placement in the right superficial femoral artery Right SFA angiogram antegrade angiogram with runoff to the right foot INDICATION Peripheral artery disease, Acute foot ischemia, Limb threatening ischemia Informed consent was obtained prior to the procedure. COMPLICATIONS none Estimated Blood Loss: less than 10 mls TECHNIQUE 1% lidocaine used to anesthetize the left femoral groin. The left femoral artery was accessed via the Seldinger technique. Using fluoroscopic guidance the JR4 catheter was advanced from the aorta into the right common iliac artery and antegrade iliofemoral angiography was performed. The catheter was then advanced into the right superficial femoral artery and unilateral superficial femoral artery angiography with runoff to the right foot was performed. At the end of the procedure the apparatus was removed the groin was reprepped closure changed sheath was removed good hemostasis was achieved using Perclose device patient was transferred to the postop holding in stable condition. ANGIOGRAPHIC RESULTS The right common internal and external iliac arteries are normal. The right common femoral artery is normal The right profunda femoris artery is normal The right superficial femoral artery is widely patent with mild nonflow limiting atheromatous plaque nothing greater than 30% The right popliteal artery has a mid vessel nonflow limiting 40% stenosis The right anterior tibialis artery is proximally occluded the entire vessel is severely vasculopathic with diffuse small vessel disease. Distally it reconstitutes from the peroneal artery and supplies some scant flow into the right foot The peroneal artery is patent and is has slow inline flow to the right foot The posterior tibialis artery is occluded in its proximal and mid segment but does collateralized distally from the peroneal artery into the posterior tibialis artery entering the foot. All 3 vessels below the knee are small caliber severely and diffusely diseased IMPRESSION Small vessel vasculopathy as described above which is a chronic finding. There is no angiographic evidence that patient is experiencing an acute ischemic right foot. PLAN 1. Patient is now complaining mostly of right hip pain. I recommend evaluating for the hip pain. This could possibly represent avascular necrosis of the acetabulum and should be evaluated accordingly 2. Patient's foot is cool to touch which is more of a chronic finding from small vessel vasculopathy. It is reasonable to place patient on Xarelto 2.5 p.o. twice daily plus aspirin 81 mg daily for her peripheral artery disease. This can be started at discharge 3. LDL less than 55 4. Evaluation of nonvascular right hip leg pain Electronically signed by : Sachin Oliveros, 06/06/2020 13:34:43
--- NOTE | 2020-06-06 10:24 | HMH.EDGENADL ---
ED Disposition Clinical Impression: Arterial occlusion Disposition: Admitted as Observation Condition on Discharge: Serious - Critical Care Critical Care Time: Yes Attestation: On 06/06/20, the high probability of a clinically significant, sudden or life threatening deterioration of the following system(s) required my full and direct attention, intervention and personal management. The time I documented below is in addition to time spent performing reported procedures but includes the following listed in this critical care notation. Total Critical Care Time: 30 Vital system(s) involved:: Circulatory Failure My critical care processes included: Assessment & monitoring of V/S, Initial and Re-exams, Data Review/Interpretation, Coordinating Care, Medication Orders and management, Documentation Medical Decision Making - Genaro Inquiry Pt receiving controlled substance: Yes Genaro was queried for this patient: No Reason not queried -: Emergent pt cond-no time Risks and benefits of using a controlled substance: were not discussed with pt by me Vital Signs: 06/06/20 09:58 06/06/20 11:28 06/06/20 12:08 Temperature 98.0 F 98.0 F Temperature Source Oral Oral Pulse Rate 62 Pulse Rate [Left Radial] 75 61 Respiratory Rate 18 18 Blood Pressure 166/57 H Blood Pressure [Left Arm] 233/88 H 176/46 H Blood Pressure Mean [Left Arm] 136 89 Blood Pressure Source [Left Arm] Automatic Cuff Automatic Cuff Blood Pressure Position [Left Arm] Sitting Sitting 02 Sat by Pulse Oximetry 98 94 L Oxygen Delivery Method Room Air Room Air Room Air - Lab Data Lab Results 06/06/20 11:01: WBC 8.2, RBC 4.34, Hgb 12.9, Hct 39.9, MCV 92.0, MCH 29.7, MCHC 32.3, RDW 13.3, Plt Count 396, MPV 7.6, Neut % (Auto) 73.1, Lymph % (Auto) 19.5, [place] % (Auto) 4.9, Eos % (Auto) 1.7, Baso % (Auto) 0.8, Neut # (Auto) 6.0, Lymph # (Auto) 1.6, [place] # (Auto) 0.4, Eos # (Auto) 0.1, Baso # (Auto) 0.1 06/06/20 11:01: Sodium 139, Potassium 4.3, Chloride 105, Carbon Dioxide 28, Anion Gap 10.3, BUN 33 H, Creatinine 1.20 H, Estimated Creat Clear 60, Estimated GFR 44 L, Est GFR ( Amer) 53 L, Glucose 192 H, Calcium 9.5, Total Bilirubin 0.5, AST 28, ALT 27, Alkaline Phosphatase 86, Total Protein 7.7, Albumin 4.3, Globulin 3.4 H, Albumin/Globulin Ratio 1.3 06/06/20 11:01: PT 10.3, INR 0.92, APTT 24.6 Result diagrams: 06/06/20 11:01 06/06/20 11:01 Orders (Tests/Meds): ED MEDICATIONS Generic Name Dose Route Start Last Admin Trade Name Freq PRN Reason Stop Dose Admin Fentanyl Citrate 25 mcg 06/06/20 11:35 Fentanyl 100mcg/2ml Vial IV 06/07/20 11:35 Q3MINP PRN Moderate to Severe Pain Fentanyl Citrate 50 mcg 06/06/20 11:35 Fentanyl 100mcg/2ml Vial IV 06/07/20 11:35 Q3MINP PRN Moderate to Severe Pain Fentanyl Citrate 25 mcg 06/06/20 11:35 Fentanyl 250mcg/5ml Vial IV 06/07/20 11:35 Q3MINP PRN Moderate to Severe Pain Fentanyl Citrate 50 mcg 06/06/20 11:35 Fentanyl 250mcg/5ml Vial IV 06/07/20 11:35 Q3MINP PRN Moderate to Severe Pain Flumazenil 0.2 mg 06/06/20 11:35 Flumazenil 0.1mg/Ml 5ml Vial IV 06/06/20 23:00 NEEDED PRN Sedation Heparin Sodium (Porcine) 10,000 unit 06/06/20 11:35 Heparin 1,000 Units/Ml 10ml Vial (Head Of Strategy) IV 06/06/20 15:35 NEEDED PRN Emergency Box Accounts Payable Payroll Coordinator Heparin Sodium/Dextrose 500 mls @ 30 mls/hr 06/06/20 11:00 06/06/20 11:10 Heparin 25,000 Units In D5w 500ml Premix IV 07/06/20 10:59 30 mls/hr .[id number] MYNOR Administration 1,500 UNITS/HR Sodium Chloride 1,000 mls @ 25 mls/hr 06/06/20 11:45 06/06/20 12:25 Sod Chlor 0.9% 1000ml Bag IV 06/07/20 11:35 25 mls/hr .Q25H MYNOR Administration Midazolam HCl 1 mg 06/06/20 11:35 Midazolam 2mg/2ml Vial IV 06/07/20 11:35 Q3MINP PRN Sedation Midazolam HCl 1 mg 06/06/20 11:35 Midazolam Hcl 1mg/1ml 5ml Vial IV 06/07/20 11:35 Q3MINP PRN Darcy
--- NOTE | 2020-06-06 10:45 | PC.NURSE ---
ANNAMARIE MURILLO speaking with Dr. Oliveros.
[2020-06-06 11:09] LABS: Basophils # 0.1 K/mm3 (0-0.2); Basophils % 0.8 % (0.1-2.0); Eosinophils # 0.1 K/mm3 (0.0-0.4); Eosinophils % 1.7 % (0.1-12.0); Hematocrit 39.9 % (37.0-47.0); Hemoglobin 12.9 g/dL (12.2-16.2); Lymphocytes # 1.6 K/mm3 (0.7-4.5); Lymphocytes % 19.5 % (10-50); Mean Corpuscular HGB Conc 32.3 g/dL (31.8-35.4); Mean Corpuscular Hemoglobin 29.7 pg (27.0-31.2); Mean Platelet Volume 7.6 fl (7.4-10.4); Monocytes # 0.4 K/mm3 (0.1-1.0); Monocytes % 4.9 % (1.7-9.3); Neutrophils % 73.1 % (37.0-80.0); Platelet Count 396 K/mm3 (142-424); Red Blood Count 4.34 M/mm3 (4.20-5.40); Red Cell Distribution Width 13.3 % (11.5-17.5); White Blood Count 8.2 K/mm3 (4.8-10.8)
[2020-06-06 11:13] LABS: Chloride 105 mmol/L (98-107); Potassium 4.3 mmoL/L (3.5-5.1); Sodium 139 mmol/L (136-145)
[2020-06-06 11:15] LABS: Alanine Aminotransferase 27 U/L (12-78); Aspartate Amino Transferase 28 U/L (14-36); Blood Urea Nitrogen 33 mg/dl (7-17); Creatinine Clearance Estimated 60 mL/min (50-200); Estimated Glomerular Filt Rate 44 ml/min (>60); GFR (African American) 53 ML/MIN (>60)
[2020-06-06 11:16] LABS: Albumin Level 4.3 g/dl (3.5-5.0); Albumin/Globulin Ratio 1.3 (1.1-1.8); Alkaline Phosphatase 86 U/L (38-126); Anion Gap 10.3 mEq/L (5-15); Bilirubin,Total 0.5 mg/dl (0.2-1.3); Calcium 9.5 mg/dl (8.4-10.2); Carbon Dioxide 28 mmol/L (22.0-30.0); Globulin 3.4 g/dL (1.3-3.2); Glucose 192 mg/dl (74-100); Total Protein,Serum 7.7 g/dl (6.3-8.2)
[2020-06-06 11:20] LABS: Activated Partial Thrombo Time 24.6 seconds (23.6-34.0); INR 0.92 (0.9-1.1); Prothrombin Time 10.3 seconds (9.4-11.8)
[2020-06-06 11:35] LABS: Adenovirus,PCR Not Detected (NotDetected); Bordetella Pertussis Not Detected (NotDetected); Chlamydophila Pneumoniae, PCR Not Detected (NotDetected); Coronavirus 19, PCR Not Detected (NotDetected); Coronavirus 229E Not Detected (NotDetected); Coronavirus NL63 Not Detected (NotDetected); Coronavirus OC43 Not Detected (NotDetected); Coronovirus HKU1,PCR Not Detected (NotDetected); Human Metapneumovirus Not Detected (NotDetected); Influenza A, PCR Not Detected (NotDetected); Influenza AH1, 2009 Not Detected (NotDetected); Influenza AH1, PCR Not Detected (NotDetected); Influenza AH3,PCR Not Detected (NotDetected); Influenza B, PCR Not Detected (NotDetected); Mycoplasma Pneumoniae, PCR Not Detected (NotDetected); Parainfluenza 1, PCR Not Detected (NotDetected); Parainfluenza 2, PCR Not Detected (NotDetected); Parainfluenza 3, PCR Not Detected (NotDetected); Parainfluenza 4, PCR Not Detected (NotDetected); Respiratory Syncytial Virus Not Detected (NotDetected); Rhinovirus/Enterovirus Not Detected (NotDetected)
--- NOTE | 2020-06-06 11:35 | PC.NURSE ---
Dr Sierra macdonald.
--- NOTE | 2020-06-06 11:36 | PC.NURSE ---
ANNAMARIE MURILLO spoke with Dr. Oliveros again at this time. ESTHER Tee from optical lab technician is here already, notified warehouse picker of pt going to optical lab technician. Covid swab has been sent to lab.
--- NOTE | 2020-06-06 12:07 | PC.NURSE ---
pt transported to labor and employment paralegal at this time via stretcher per jyoti duenas and jyoti valente
--- NOTE | 2020-06-06 12:13 | PC.NURSE ---
die sinking machine operator paging applications packager (Dr. Carl) for Dr. Esquivel again at this time r/t no call back yet
--- NOTE | 2020-06-06 12:16 | PC.NURSE ---
ANNAMARIE MURILLO speaking with Dr. Carl at this time
--- NOTE | 2020-06-06 12:24 | PC.NURSE ---
notified salesperson household appliances and animal laboratory technician staff of admission
[2020-06-06 13:22] LABS: CATHL Activated Clotting Time 192 SEC (74-125)
[2020-06-06 15:33] LABS: Activated Partial Thrombo Time 65.2 seconds (23.6-34.0)
--- NOTE | 2020-06-06 15:47 | PC.NURSE ---
NOTIFIED ABOUT PT'S MOST RECENT APTT RESULTS 65.2. STATED TO STOP THE HEPARIN DRIP AND DINORAH FROM PHARMACY STATED THAT THE APTT LAB DRAWS CAN BE CANCELLED SINCE PT IS NOT GOING TO BE ON THE HEPARIN DRIP.
[2020-06-06 19:08] LABS: Glucose,Random 75 mg/dL (74-100)
--- NOTE | 2020-06-06 20:13 | PC.NURSE ---
PT IS RESTING IN BED. NO COMPLAINTS OF DISCOMFORT. WHEN PT ARRIVED TO THE FLOOR FROM POCKET SETTER ALL PULSES HAD TO BE OBTAINED WITH DOPPLER. PT NOW HAS PALPABLE PULSES. HEPARIN DRIP WAS STOPPED AT 1530 PER . PT HAS BEEN UP AMBULATING TO THE BATHROOM WITH 1 ASSIST. PT HAD A CRITICAL GLUCOSE OF 40 BEFORE DINNER. RANDOM GLUCOSE WAS ORDERED. PT WAS GIVEN ORANGE JUICE. PCP WAS NOTIFIED AND HE ORDERED A 1/2 AMP OF D50. IVF'S DC'D. LUNG SOUNDS CLEAR. ABDOMEN SOFT/NON TENDER WITH ACTIVE BOWEL SOUNDS. VSS. REPORT HAND OFF TO ZOË MORROW RN.
[2020-06-06 21:30] LABS: POC Glucose,Bedside 292 (70-110)
[2020-06-07] VITALS: BP 146/66; PULSE 66; RESP 20; TEMP 36.9; O2SAT 96
[2020-06-07 04:00] VITALS: BP 154/61; PULSE 81; RESP 20; TEMP 36.9; O2SAT 95
[2020-06-07 05:01] VITALS: BMI 34.7
--- NOTE | 2020-06-07 05:01 | PC.NURSE ---
correct chart for note, patient was too weak to stand on scale long enough to get accurate reading. charted reading is the most accurate to get before she got too weak. another weight reading will be needed.
[2020-06-07 05:22] LABS: POC Glucose,Bedside 200 (70-110)
--- NOTE | 2020-06-07 06:01 | PC.NURSE ---
A&OX4. BLE EQUAL IN WARMTH AND COLOR. PEDAL, AND POPLITEAL PULSES PRESENT. PAIN TO RLE X2; TX WITH NORCO, RELIEF REPORTED. ONE EPISODE OF NAUSEA REPORTED; ZOFRAN PER MAR, RELIEF REPORTED.
[2020-06-07 08:00] VITALS: BP 144/54; PULSE 84; RESP 16; TEMP 37; O2SAT 93
[2020-06-07 08:24] LABS: Basophils # 0.1 K/mm3 (0-0.2); Basophils % 0.6 % (0.1-2.0); Eosinophils # 0.2 K/mm3 (0.0-0.4); Eosinophils % 1.7 % (0.1-12.0); Hematocrit 36.8 % (37.0-47.0); Hemoglobin 11.5 g/dL (12.2-16.2); Lymphocytes # 1.9 K/mm3 (0.7-4.5); Lymphocytes % 16.6 % (10-50); Mean Corpuscular HGB Conc 31.2 g/dL (31.8-35.4); Mean Corpuscular Hemoglobin 29.3 pg (27.0-31.2); Mean Corpuscular Volume 93.9 fl (81-99); Mean Platelet Volume 15.7 fl (7.4-10.4); Monocytes # 0.7 K/mm3 (0.1-1.0); Monocytes % 5.8 % (1.7-9.3); Neutrophils # 8.5 K/mm3 (1.8-7.8); Neutrophils % 75.3 % (37.0-80.0); Platelet Count 314 K/mm3 (142-424); Red Blood Count 3.92 M/mm3 (4.20-5.40); Red Cell Distribution Width 16.3 % (11.5-17.5); White Blood Count 11.3 K/mm3 (4.8-10.8)
[2020-06-07 08:29] LABS: Chloride 105 mmol/L (98-107); Potassium 4.7 mmoL/L (3.5-5.1); Sodium 137 mmol/L (136-145)
[2020-06-07 08:32] LABS: Anion Gap 10.7 mEq/L (5-15); Blood Urea Nitrogen 34 mg/dl (7-17); Calcium 9.1 mg/dl (8.4-10.2); Carbon Dioxide 26 mmol/L (22.0-30.0); Creatinine Clearance Estimated 44 mL/min (50-200); Estimated Glomerular Filt Rate 34 ml/min (>60); GFR (African American) 41 ML/MIN (>60); Glucose 277 mg/dl (74-100)
--- NOTE | 2020-06-07 09:03 | HMH.HP ---
*Admission Date: 06/06/20 *Chief complaint: rt lower leg pain *History of present illness: this patient presented to the ed R posterior thigh pain, pt reports pain begins in buttocks area and radiatees down her R leg. Pt reports pain has been going on for approx 2 weeks. Pt denies any injury. The patient complains of right lower extremity pain. She says it goes from her right buttock area down her leg. Denies injury. Denies any exacerbation with movement or ambulation, says it just hurts constantly. She has been having pain off and on for couple of weeks, but yesterday became severe and constant. Denies numbness or weakness. Denies back pain. Denies swelling of the leg. Denies fever. Denies previous similar pain. oes of right foot are very cold. Left toes are warm. I cannot palpate any pedal pulses in her right foot, she has strong pedal pulses palpable in the left foot. With Doppler there is a very faint posterior tibial pulse in the right foot, but no dorsalis pedis can be found. She is able to wiggle her toes. Capillary refill is sluggish in the right toes. She does have sensation in her right foot. Good femoral and popliteal pulses bilaterally. pt was taken to the slab worker for acute art occlusion rt lower leg by dr CarbajalOGRAPHIC RESULTS The right common internal and external iliac arteries are normal. The right common femoral artery is normal The right profunda femoris artery is normal The right superficial femoral artery is widely patent with mild nonflow limiting atheromatous plaque nothing greater than 30% The right popliteal artery has a mid vessel nonflow limiting 40% stenosis The right anterior tibialis artery is proximally occluded the entire vessel is severely vasculopathic with diffuse small vessel disease. Distally it reconstitutes from the peroneal artery and supplies some scant flow into the right foot The peroneal artery is patent and is has slow inline flow to the right foot The posterior tibialis artery is occluded in its proximal and mid segment but does collateralized distally from the peroneal artery into the posterior tibialis artery entering the foot. All 3 vessels below the knee are small caliber severely and diffusely diseased IMPRESSION Small vessel vasculopathy as described above which is a chronic finding. There is no angiographic evidence that patient is experiencing an acute ischemic right foot. PLAN 1. Patient is now complaining mostly of right hip pain. I recommend evaluating for the hip pain. This could possibly represent avascular necrosis of the acetabulum and should be evaluated accordingly 2. Patient's foot is cool to touch which is more of a chronic finding from small vessel vasculopathy. It is reasonable to place patient on Xarelto 2.5 p.o. twice daily plus aspirin 81 mg daily for her peripheral artery disease. This can be started at discharge 3. LDL less than 55 4. Evaluation of nonvascular right hip leg pain pt admitted for eval and treatment [facility] History I have reviewed the patient's past medical history: Yes Medical History: Reports:: Diabetes Mellitus Type 2, Hyperlipidemia, Hypertension Denies:: Cancer, Diabetes Mellitus Type 1, Internal Pacemaker, Lung Disease, MRSA, Seizures *Have you ever received a pneumonia vaccine?: No *Have you received a flu vaccine this season?: No Other Surgeries: Yes: No Previous Surgery, Diagnostic Lap, Hysterectomy-Partial, Other. No: Pacemaker Amputation: No Fractures: No - *Social History Last grade of school completed: 7th or 8th Smoking Status: Never smoker Alcohol Intake: never Substance Use Type: denies use *Occupational Status:: retired Housing: house Household Members: children *Travel in the last 8 weeks: None Family Hx:: Diabetes, Heart Attack, Hypertension Review of Systems - Review of Systems Review of systems:: pertinent systems reviewed and negative unless documented below - Constitutional Denies
--- NOTE | 2020-06-07 09:24 | XR_ITS ---
PROCEDURE: XR HIP RT 2-3V W/PELVIS Referring Doctor: Servando Esquivel Patient Age:74Y CLINICAL INDICATION: pain right hip and back pain COMPARISON: CR XR LUMBAR SPINE MIN 4V from 06/07/2020 FINDINGS: Right hip AP and frog-leg view; along with AP pelvis radiograph performed today -----Right hip: No fracture or dislocation is evident. The right hip joint spaces well maintained. The right femoral head neck and trochanteric region are intact. The the the ----AP pelvis Osseous pelvis intact with no fracture. Diffuse demineralization pelvis and hips. But sacrum appears intact as do the SI joints. Iliac bone, of superior and inferior ramus intact. Pubis unremarkable but hip joint spaces are maintained bilaterally with normal contour femoral head bilaterally. The Minimal phleboliths at the pelvic basin. Faint diffuse atherosclerotic calcification SFA and profundal suspect for history of of diabetes IMPRESSION: Right hip and osseous pelvis intact. No fracture evident. No acute findings Hip joint spaces are well maintained of most of with little if any degenerative changes. Dictated by: Baron Lopez MD 06/07/2020 12:43 Baron Lopez MD in [place] 06/07/2020 12:43
--- NOTE | 2020-06-07 09:24 | XR_ITS ---
PROCEDURE: XR LUMBAR SPINE MIN 4V Referring Doctor: Servando Esquivel Patient Age:74Y CLINICAL INDICATION: pain low back pain. No injury. COMPARISON: No exams were available for comparison FINDINGS: No acute fracture lumbar spine and visualized T-spine up to the T10 level but there is diffuse demineralization. L5/S1. The disc space narrowing with moderate facet hypertrophy. Suspect there is some posterior hypertrophic ridging L5/S1 L4/5. Mild disc space narrowing posteriorly. L3/4, and L2/3 disc spaces are well maintained with only borderline narrowing at L1/2 disc space. Marginal osteophytes throughout L-spine but most notable and prominent at L1/2 and L5/S1 generous anterior marginal osteophytes the anteriorly to the right and left at both of these levels Other observations: . Small calcifications projected over the mid left kidney on with 3.5 mm calcification towards upper pole in a smaller 2.5 mm calcification midportion left kidney. These could reflect small calculi versus the overlying vascular calcification the. . Moderate to generous solid stool at the right colon. . Minimal atherosclerotic calcification normal caliber aorta the the IMPRESSION: 1..No acute findings lumbar spine no compression fractures. No obvious lesions 2..[id number] degenerative changes: .. Degenerative disc space narrowing L5/S1,; with mild narrowing posterior L4/5 disc. . Marginal osteophytes most prominent at L1/2 at L5/S1 . Developing facet arthropathy at lower L-spine 3. two Small non-specific calcification left kidney-vascular calcification vs small renal calculi 4. Diffuse demineralization Pelvis and hips unremarkable on these images as well the Dictated by: Baron Lopez MD 06/07/2020 12:54 Baron Lopez MD in [place] 06/07/2020 12:54
--- NOTE | 2020-06-07 11:08 | HMH.PHAHEP ---
[facility] Pharmacy Heparin Dosing - Demographic Data Admission date:: 06/06/20 Date: 06/07/20 Time: 11:08 Allergies/Adverse Reactions: Allergies Allergy/AdvReac Type Severity Reaction Status Date / Time No Known Drug Allergies Allergy Unknown Verified 05/26/20 09:54 Height: 1.55 m Weight: 83.5 kg - Indication Medication therapy:: Heparin Patient Problems: Current Active Problems Arterial occlusion (Acute) CVA?: No Bleeding problem?: No Kidney disease?: No IA?: No Desired PTT range:: 50-70 seconds - Labs Anticoagulation Lab Results:: 06/06/20 06/07/20 11:01 08:15 Hgb 12.9 11.5 L D Hct 39.9 36.8 L Plt Count 396 314 - Monitoring Dose Monitor 1 Date: 06/06/20 Time: 13:30 PTT Result:: 24.6 Infusion Rate:: HEPARIN DRIP STARTED IN ER AT 1500 UNITS/HR AND [address] ISBELL. PATIENT TAKEN TO THE HEALTHCARE ADMINISTRATION INTERN. DRIP WAS STOPPED THERE AND RESTARTED AFTER PROCEDURE. Dose Monitor 2 Date: 06/06/20 Time: 14:55 PTT Result:: 65.2 Infusion Rate:: PATIENT RECEIVED BOLUS AND DRIP WHILE IN ER AND ADDITIONAL HEPARIN IN HEALTHCARE ADMINISTRATION INTERN. DR. ISBELL HAD ADRIANA STOP THE DRIP POST PROCEDURE. - Core Measures Is INR > or = 2 at discharge?: No Most Recent Labs:: Laboratory Results - last 24 hr 06/06/20 11:01: WBC 8.2, RBC 4.34, Hgb 12.9, Hct 39.9, MCV 92.0, MCH 29.7, MCHC 32.3, RDW 13.3, Plt Count 396, MPV 7.6, Neut % (Auto) 73.1, Lymph % (Auto) 19.5, [place] % (Auto) 4.9, Eos % (Auto) 1.7, Baso % (Auto) 0.8, Neut # (Auto) 6.0, Lymph # (Auto) 1.6, [place] # (Auto) 0.4, Eos # (Auto) 0.1, Baso # (Auto) 0.1 06/06/20 11:01: Sodium 139, Potassium 4.3, Chloride 105, Carbon Dioxide 28, Anion Gap 10.3, BUN 33 H, Creatinine 1.20 H, Estimated Creat Clear 60, Estimated GFR 44 L, Est GFR ( Amer) 53 L, Glucose 192 H, Calcium 9.5, Total Bilirubin 0.5, AST 28, ALT 27, Alkaline Phosphatase 86, Total Protein 7.7, Albumin 4.3, Globulin 3.4 H, Albumin/Globulin Ratio 1.3 06/06/20 11:01: PT 10.3, INR 0.92, APTT 24.6 06/06/20 11:28: Chlamy pneumoniae PCR Not detected, Adenovirus (PCR) Not detected, B. pertussis DNA (PCR) Not detected, Coronavirus OC43 (PCR) Not detected, Coronavirus HKU1 (PCR) Not detected, Coronavirus 229E (PCR) Not detected, SARS-CoV-2 (PCR) Not detected, Coronavirus NL63 (PCR) Not detected, Human Metapneumovir PCR Not detected, Influenza A (H1) PCR Not detected, Influ A (H1N1/09) PCR Not detected, Influenza A (H3) PCR Not detected, Influenza Type A (PCR) Not detected, Influenza Type B (PCR) Not detected, M. pneumoniae (PCR) Not detected, Parainfluenza 1 (PCR) Not detected, Parainfluenza 2 (PCR) Not detected, Parainfluenza 3 (PCR) Not detected, Parainfluenza 4 (PCR) Not detected, RSV (PCR) Not detected, Entero/Rhino (PCR) Not detected 06/06/20 13:34: Activated Clotting Time 192 H* 06/06/20 14:55: APTT 65.2 H* D 06/06/20 18:50: Random Glucose 75 06/06/20 21:19: POC Glucose 292 H 06/07/20 05:14: POC Glucose 200 H 06/07/20 08:15: WBC 11.3 H D, RBC 3.92 L, Hgb 11.5 L D, Hct 36.8 L, MCV 93.9, MCH 29.3, MCHC 31.2 L, RDW 16.3, Plt Count 314, MPV 15.7 H, Neut % (Auto) 75.3, Lymph % (Auto) 16.6, [place] % (Auto) 5.8, Eos % (Auto) 1.7, Baso % (Auto) 0.6, Neut # (Auto) 8.5 H, Lymph # (Auto) 1.9, [place] # (Auto) 0.7, Eos # (Auto) 0.2, Baso # (Auto) 0.1 06/07/20 08:15: Sodium 137, Potassium 4.7, Chloride 105, Carbon Dioxide 26, Anion Gap 10.7, BUN 34 H, Creatinine 1.50 H D, Estimated Creat Clear 44, Estimated GFR 34 L, Est GFR ( Amer) 41 L D, Glucose 277 H D, Calcium 9.1 Were Heparin and Warfarin started on the same day?: No
[2020-06-07 12:04] LABS: POC Glucose,Bedside 297 (70-110)
--- NOTE | 2020-06-07 13:17 | HMH.PHAVTE ---
[facility] Pharmacy VTE Monitoring - Patient Demographics Admission date: 06/07/20 Report Date: 06/07/20 Time: 13:17 Allergies/Adverse Reactions: Patient Allergies No Known Drug Allergies Allergy (Unknown, Verified 05/26/20 09:54) Height: 1.55 m Weight: 83.5 kg Patient Problems: Current Active Problems Arterial occlusion (Acute) - VTE Risk Labs: VTE Related Lab Results Hgb 11.5 g/dL (12.2-16.2) L D 06/07/20 08:15 Hct 36.8 % (37.0-47.0) L 06/07/20 08:15 Plt Count 314 K/mm3 (142-424) 06/07/20 08:15 PT 10.3 seconds (9.4-11.8) 06/06/20 11:01 INR 0.92 (0.9-1.1) 06/06/20 11:01 APTT 65.2 seconds (23.6-34.0) H* D 06/06/20 14:55 BUN 34 mg/dl (7-17) H 06/07/20 08:15 Creatinine 1.50 mg/dl (0.52-1.04) H D 06/07/20 08:15 Estimated Creat Clear 44 mL/min (50-200) 06/07/20 08:15 VTE Score: 1 - Prophylaxis Types of VTE Prophylaxis: TEDS Knee High, Pharmacological Location of Applied Device: Bilateral Lower Extremeties, Not Applicable Pharmacologic Type: Other (ANA PAULA HOSE AND XARELTO ORDERED. PATIENT WAS RECEIVING HEPARIN IV WELL.)
[2020-06-07 13:38] LABS: Hemoglobin A1C 8.9 % (4.0-6.0)
[2020-06-07 15:21] VITALS: BP 141/59; PULSE 66; RESP 16; TEMP 36.8; O2SAT 96
--- NOTE | 2020-06-07 15:52 | PC.NURSE ---
PT IS RESTING IN BED. PT STATES SHE IS STILL HAVING PAIN IN HER RLE. RECEIVING PAIN MEDICATION NEEDED. PALPABLE PULSES NOTED. PT AMBULATES TO THE BATHROOM WITH 1 ASSIST. DRESSING TO THE LT GROIN C/D/I. LUNG SOUNDS CLEAR. ABDOMEN SOFT/NON TENDER WITH ACTIVE BOWEL SOUNDS. VSS. WILL CONTINUE TO MONITOR.
[2020-06-07 17:27] LABS: POC Glucose,Bedside 163 (70-110)
[2020-06-07 20:00] VITALS: BP 145/53; PULSE 72; RESP 16; TEMP 37.1; O2SAT 91
[2020-06-07 21:05] LABS: POC Glucose,Bedside 198 (70-110)
[2020-06-08 04:00] VITALS: BP 180/61; PULSE 73; RESP 17; TEMP 36.6; O2SAT 93
--- NOTE | 2020-06-08 05:08 | PC.NURSE ---
Pulses present to ble (pedal, popliteal). BE equal in color and temperature. Pt. has not c/o pain, n/v/d, dizziness or soa this shift.
--- NOTE | 2020-06-08 05:47 | PC.NURSE ---
0534- fsbs: 45 0535- fsbs: 47 0538- renae gerardo md regarding fsbs. new order: 1 amp of d50 0545- lab at bedside 0546- d50 administered
[2020-06-08 06:00] VITALS: BMI 34.7
[2020-06-08 06:12] LABS: Glucose,Random 227 mg/dL (74-100)
[2020-06-08 07:13] LABS: POC Glucose,Bedside 121 (70-110)
[2020-06-08 07:48] VITALS: BP 147/54; PULSE 68; RESP 16; TEMP 36.9; O2SAT 90
--- NOTE | 2020-06-08 07:58 | CA_ITS ---
APPROVED REPORT Right Lower Extremity Venous Study for DVT. [place]: GALILEA Indications Lower Extremity Pain: Right pain/possible dvt Vein Imaging CFV (R): compressive, spontaneous, phasic, augmentation FEM (R): compressive, spontaneous, phasic, augmentation POP (R): compressive, spontaneous, phasic, augmentation PTV (R): Compressible GSV (R): Compressible Peroneals (R):Compressible GAS (R): Compressible Findings Study suggests no evidence of DVT of the right lower extremity. Study suggests no evidence of SVT of the right lower extremity. Conclusion Study suggests no evidence of DVT of the right lower extremity. Study suggests no evidence of SVT of the right lower extremity. Electronically signed by : Onesimo Bean MD 06/08/2020 16:13:37
[2020-06-08 09:16] LABS: Chloride 110 mmol/L (98-107)
[2020-06-08 09:17] LABS: Potassium 4.2 mmoL/L (3.5-5.1); Sodium 139 mmol/L (136-145)
[2020-06-08 09:19] LABS: Basophils % 0.4 % (0.1-2.0); Blood Urea Nitrogen 36 mg/dl (7-17); Creatinine Clearance Estimated 47 mL/min (50-200); Eosinophils # 0.1 K/mm3 (0.0-0.4); Estimated Glomerular Filt Rate 37 ml/min (>60); GFR (African American) 45 ML/MIN (>60); Hematocrit 30.9 % (37.0-47.0); Hemoglobin 9.7 g/dL (12.2-16.2); Lymphocytes # 0.8 K/mm3 (0.7-4.5); Lymphocytes % 8.7 % (10-50); Mean Corpuscular HGB Conc 31.3 g/dL (31.8-35.4); Mean Corpuscular Hemoglobin 29.7 pg (27.0-31.2); Mean Platelet Volume 8.7 fl (7.4-10.4); Monocytes # 0.7 K/mm3 (0.1-1.0); Monocytes % 7.2 % (1.7-9.3); Neutrophils # 7.7 K/mm3 (1.8-7.8); Neutrophils % 82.7 % (37.0-80.0); Platelet Count 309 K/mm3 (142-424); Red Blood Count 3.25 M/mm3 (4.20-5.40); Red Cell Distribution Width 12.9 % (11.5-17.5); White Blood Count 9.3 K/mm3 (4.8-10.8)
[2020-06-08 09:20] LABS: Anion Gap 8.2 mEq/L (5-15); Carbon Dioxide 25 mmol/L (22.0-30.0); Glucose 225 mg/dl (74-100)
[2020-06-08 09:27] LABS: C-Reactive Protein 27.7 mg/L (0-4)
[2020-06-08 09:58] LABS: Erythrocyte Sedimentation Rate 81 mm/hr (0-30)
[2020-06-08 11:14] LABS: POC Glucose,Bedside 184 (70-110)
[2020-06-08 11:14] LABS: POC Glucose,Bedside 174 (70-110)
--- NOTE | 2020-06-08 11:43 | HMH.PTEV ---
Physical Therapy Evaluation Rehab PT IP Evaluation Start: 06/08/20 10:43 Freq: ONCE Status: Active Protocol: Document 06/08/20 11:40 PHORTANYA (Rec: 06/08/20 11:43 PHORNE [id number]) Subjective/History History History 74 yowf adm to [facility] with R LE pain, found to have decreased arterial flow in the R LE. Pt lives with daughter and is independent with all mobility without AD prior to adm per her report Subjective Subjective Pt with no c/o this am. Rehab PT IP Eval Objective Appearance Patient Behavior Appropriate Patient Orientation Person,Place Difficulty following instructions none Speech Pattern Clear,Appropriate Ambulation Patient Able to Ambulate Yes Ambulation Observation IP General Gait Pattern Observation Wide Based Gait Ambulation Distance (feet) 30 Ambulation Assistive Device None Ambulation Ability Contact Guard/Hand Hold Balance Ability to Arise Able, uses arms to help Sitting Balance Steady, safe Standing Balance Steady, wide stance Dynamic Sitting Balance Ability Good Dynamic Standing Balance Ability Fair Transfers Bed Transfer Ability Contact Guard/Hand Hold Chair Transfer Ability Contact Guard/Hand Hold Sit to Stand Bed Transfer Ability Contact Guard/Hand Hold Sit to Stand Chair Transfer Ability Contact Guard/Hand Hold ROM All Extremities PT ROM Status WFL MMT All Extremities PT MMT WFL Rehab PT IP prob,goals,plan Problems Date of Evaluation: 06/08/20 Discharge Plan PT Discharge Plan Pt appears to be at baseline for all mobility at this time, No current inpatient therapy needs. She is appropriate to return home once medically stable. G -code Required No Eval Complexity Eval Charge Codes 93891 - Moderate Complexity PHYSICIAN CERTIFICATION: I certify the specified therapy services for Mirtha Ivey are required, authorized, and reviewed every 30 days.
--- NOTE | 2020-06-08 11:44 | HMH.OTEV ---
OT Inpatient Evaluation Rehab OT IP Evaluation Start: 06/08/20 10:44 Freq: ONCE Status: Complete Protocol: Document 06/08/20 11:39 [facility] (Rec: 06/08/20 11:44 [facility] [id number]) Rehab OT IP Assessment Subjective History Pt oriented x 3 on arrival. Pt agreeable to engage in therapy evaluation. Pt was admitted via ED on 06/06/20 due to Arterial Occlusion in R leg . Pt reported leg pain for 2 weeks that became severe resulting in visit to ER. Pt has a past medical history of DM type 2, Hyperlipidemia, and HTN. Pt explains she lived at home with her daughter. Pt reports she was independent with ADL's prior to being admitted. Pt did report her daughter does most of the IADL 's such as cleaning and cooking. Pt did not use any AE prior. Subjective I am just a little sore in that leg. Objective Patient Orientation Person,Time,Birthday Upper Extremity Gross ROM WFL Bed Mobility bed mobility-scooting,bed mobility - supine/sit,bed mobility - rolling Assist Level Supervision/Stand by Transfer Training Sit/Stand Transfer Assist Level Supervision/Stand by Performing Toilet Hygiene Ability Standby Assistance Overall Commode/Toilet Transfer Ability Standby Assistance Commode/Toilet Transfer Technique Sit to/from Ambulatory Rehab OT IP prob,goals,plan Problems Date of Evaluation: 06/08/20 Rehab Potential Rehab Potential Innapropriate for Skilled Therapy Discharge Plan OT Discharge Plan Pt is safe to return home with daughter once medically stable. Pt appears to be at baseline with activities of daily living. Eval Complexity Eval Charge Codes 32769 - Moderate Complexity G Codes G -code Required No PHYSICIAN CERTIFICATION: I certify the specified therapy services for Mirtha Ivey are required, authorized, and reviewed every 30 days.
--- NOTE | 2020-06-08 13:00 | HMH.DCSUM ---
General - General Admission date:: 06/06/20 Discharge date: 06/08/20 HPI HPI: this patient presented to the ed R posterior thigh pain, pt reports pain begins in buttocks area and radiatees down her R leg. Pt reports pain has been going on for approx 2 weeks. Pt denies any injury. The patient complains of right lower extremity pain. She says it goes from her right buttock area down her leg. Denies injury. Denies any exacerbation with movement or ambulation, says it just hurts constantly. She has been having pain off and on for couple of weeks, but yesterday became severe and constant. Denies numbness or weakness. Denies back pain. Denies swelling of the leg. Denies fever. Denies previous similar pain. oes of right foot are very cold. Left toes are warm. I cannot palpate any pedal pulses in her right foot, she has strong pedal pulses palpable in the left foot. With Doppler there is a very faint posterior tibial pulse in the right foot, but no dorsalis pedis can be found. She is able to wiggle her toes. Capillary refill is sluggish in the right toes. She does have sensation in her right foot. Good femoral and popliteal pulses bilaterally. pt was taken to the dye lab technician for acute art occlusion rt lower leg by dr CarbajalOGRAPHIC RESULTS The right common internal and external iliac arteries are normal. The right common femoral artery is normal The right profunda femoris artery is normal The right superficial femoral artery is widely patent with mild nonflow limiting atheromatous plaque nothing greater than 30% The right popliteal artery has a mid vessel nonflow limiting 40% stenosis The right anterior tibialis artery is proximally occluded the entire vessel is severely vasculopathic with diffuse small vessel disease. Distally it reconstitutes from the peroneal artery and supplies some scant flow into the right foot The peroneal artery is patent and is has slow inline flow to the right foot The posterior tibialis artery is occluded in its proximal and mid segment but does collateralized distally from the peroneal artery into the posterior tibialis artery entering the foot. All 3 vessels below the knee are small caliber severely and diffusely diseased IMPRESSION Small vessel vasculopathy as described above which is a chronic finding. There is no angiographic evidence that patient is experiencing an acute ischemic right foot. PLAN 1. Patient is now complaining mostly of right hip pain. I recommend evaluating for the hip pain. This could possibly represent avascular necrosis of the acetabulum and should be evaluated accordingly 2. Patient's foot is cool to touch which is more of a chronic finding from small vessel vasculopathy. It is reasonable to place patient on Xarelto 2.5 p.o. twice daily plus aspirin 81 mg daily for her peripheral artery disease. This can be started at discharge 3. LDL less than 55 4. Evaluation of nonvascular right hip leg pain pt admitted for eval and treatment Hospital Course Hospital Course: Laboratory Tests 06/06/20 06/06/20 06/06/20 11:01 11:01 11:01 WBC 8.2 RBC 4.34 Hgb 12.9 Hct 39.9 MCV 92.0 MCH 29.7 MCHC 32.3 RDW 13.3 Plt Count 396 MPV 7.6 Neut % (Auto) 73.1 Lymph % (Auto) 19.5 Coffee % (Auto) 4.9 Eos % (Auto) 1.7 Baso % (Auto) 0.8 Neut # (Auto) 6.0 Lymph # (Auto) 1.6 Coffee # (Auto) 0.4 Eos # (Auto) 0.1 Baso # (Auto) 0.1 ESR PT 10.3 INR 0.92 APTT 24.6 Activated Clotting Time Sodium 139 Potassium 4.3 Chloride 105 Carbon Dioxide 28 Anion Gap 10.3 BUN 33 H Creatinine 1.20 H Estimated Creat Clear 60 Estimated GFR 44 L Est GFR ( Amer) 53 L Glucose 192 H POC Glucose Random Glucose Hemoglobin A1c Calcium 9.5 Total Bilirubin 0.5 AST 28 ALT 27 Alkaline Phosphatase 86 C-Reactive Protein Total Protein
--- NOTE | 2020-06-08 14:33 | PC.NURSE ---
THIS NURSE HELD MORNING INSULIN DOSE OF 65 UNITS RELATED TO ISSUES WITH BLOOD SUGAR OVERNIGHT
[2020-06-15 11:43] LABS: POC Glucose,Bedside 47 (70-110)
[2020-06-15 11:43] LABS: POC Glucose,Bedside 40 (70-110)
[2020-06-15 11:43] LABS: POC Glucose,Bedside 45 (70-110)
== END 2020-06-08 14:46 | disposition home or self-care (01) ==
LOC: ER 10:35 → 2ND 12:29
PROVIDERS: Internal Medicine; Admitting Provider Family Medicine; Emergency Provider Emergency Medicine; PCP Emergency Medicine; Visit Provider Emergency Medicine
DX: I70.221 Atherosclerosis of native arteries of extremities with rest pain, right leg (principal); I70.211 Atherosclerosis of native arteries of extremities with intermittent claudication, right leg; I77.1 Stricture of artery; E11.51 Type 2 diabetes mellitus with diabetic peripheral angiopathy without gangrene; Z79.4 Long term (current) use of insulin; Z79.899 Other long term (current) drug therapy; M47.26 Other spondylosis with radiculopathy, lumbar region; M54.5 Low back pain; I70.92 Chronic total occlusion of artery of the extremities; Z79.82 Long term (current) use of aspirin; I80.3 Phlebitis and thrombophlebitis of lower extremities, unspecified; M47.896 Other spondylosis, lumbar region
CPT/HCPCS: 36247; 36415; 72110; 73502; 75710; 80048; 80053; 82947; 82962; 83036; 85025; 85347; 85610; 85651; 85730; 86140; 87581; 87633; 87798; 93971; 96365; 96375; 97162; 97166; 99152; 99153; 99283; C1725; C1760; C1769; C1894; G0378; J1644; J2405; Q9966

== ENCOUNTER 2020-06-19 15:48 | Emergency (ER) | payer MEDICARE, SELFPAY ==
[2020-06-19 15:49] VITALS: BP 196/81; PULSE 68; RESP 18; TEMP 36.8; O2SAT 98; BMI 34.7
[2020-06-19 16:19] VITALS: BP 196/81; PULSE 65; RESP 20; O2SAT 100
[2020-06-19 16:30] VITALS: BP 180/68; PULSE 69; RESP 16; O2SAT 97
[2020-06-19 16:49] VITALS: BMI 34.7
[2020-06-19 16:58] LABS: Chloride 99 mmol/L (98-107); Potassium 4.9 mmoL/L (3.5-5.1); Sodium 134 mmol/L (136-145)
[2020-06-19 17:01] LABS: Alanine Aminotransferase 29 U/L (12-78); Albumin Level 4.3 g/dl (3.5-5.0); Albumin/Globulin Ratio 1.3 (1.1-1.8); Alkaline Phosphatase 124 U/L (38-126); Anion Gap 10.9 mEq/L (5-15); Aspartate Amino Transferase 25 U/L (14-36); Bilirubin,Total 0.4 mg/dl (0.2-1.3); Blood Urea Nitrogen 40 mg/dl (7-17); Carbon Dioxide 29 mmol/L (22.0-30.0); Creatinine Clearance Estimated 40 mL/min (50-200); Estimated Glomerular Filt Rate 29 ml/min (>60); GFR (African American) 36 ML/MIN (>60); Globulin 3.3 g/dL (1.3-3.2); Total Protein,Serum 7.6 g/dl (6.3-8.2)
[2020-06-19 17:02] LABS: Calcium 9.4 mg/dl (8.4-10.2); Glucose 359 mg/dl (74-100)
[2020-06-19 17:15] LABS: Basophils % 0.2 % (0.1-2.0); Eosinophils % 0.1 % (0.1-12.0); Hematocrit 39.3 % (37.0-47.0); Hemoglobin 12.4 g/dL (12.2-16.2); Lymphocytes # 1.3 K/mm3 (0.7-4.5); Lymphocytes % 10.5 % (10-50); Mean Corpuscular HGB Conc 31.5 g/dL (31.8-35.4); Mean Corpuscular Hemoglobin 29.4 pg (27.0-31.2); Mean Corpuscular Volume 93.4 fl (81-99); Monocytes # 0.6 K/mm3 (0.1-1.0); Monocytes % 4.9 % (1.7-9.3); Neutrophils # 10.2 K/mm3 (1.8-7.8); Neutrophils % 84.4 % (37.0-80.0); Platelet Count 435 K/mm3 (142-424); Red Blood Count 4.21 M/mm3 (4.20-5.40); Red Cell Distribution Width 13.1 % (11.5-17.5); White Blood Count 12.1 K/mm3 (4.8-10.8)
--- NOTE | 2020-06-19 17:40 | HMH.EDGENADL ---
ED Disposition Clinical Impression: Right leg pain, Atypical chest pain Disposition: Home, Self-Care Condition on Discharge: Good Additional Instructions: Gabapentin as prescribed. [place] if needed for pain. Follow-up with Dr. Esquivel in the office next week. Additional instructions for CONTROLLED SUBSTANCES: You have been prescribed a medication that is a controlled substance. Controlled substances include pain medications known as opiates and sedative nerve medications known as benzodiazepines. Tramadol, fioricet, and gabapentin are also controlled substances. Some common opiates include: Codeine (such as Tylenol #3) Hydrocodone (Vicodin, Lortab, Lorcet, [place]) Oxycodone (Percocet, Percodan, Oxycodone, Oxy IR) Some common benzodiazepines include: Diazepam (Valium) Lorazepam (Ativan) Alprazolam (Xanax) Clonazepam (Klonopin) Oxazepam (Serax) All of these controlled substances are highly addictive and frequently abused. Misuse can and frequently does lead to addiction as well as overdose and . Medication should be stored in a locked cabinet or other secure storage unit. Do not store the medication in a motor vehicle. Short term supplies, 3 days or less, are prescribed because of the highly addictive nature of the medication. Any of the controlled substance medication NOT taken should be disposed of properly and NOT SAVED. The recommended method of disposing of unused medications is: Place the medicines in a sealable plastic bag. If the medicine is a solid, crush it or add water to dissolve it. Add something undesirable (cat litter, coffee grounds, etc.) Dispose of sealed bag in household trash Do not flush or pour unused medicines down a sink or drain. Controlled substances should not be shared, given away or sold. Because of the addictive nature and frequent abuse, these medications are sometimes stolen. These medications should be kept in a safe place where they cannot be stolen. Do not keep them in your car or purse. Lost or stolen prescriptions for controlled substances WILL NOT BE REFILLED in this emergency department, regardless of whether a police report was filed. Prescriptions: Hydrocod/Acet 5/325 mg [[place] 5/325mg tablet] 1 tab PO Q6HP PRN #10 tab PRN Reason: Pain Transmission Status: [facility] to [facility] Gabapentin [Gabapentin 100mg Cap] 100 mg PO TID #30 cap Transmission Status: Sent to [facility] Referrals: Servando Esquivel MD [Primary Care Provider] - - Critical Care Critical Care Time: No Attestation: On 06/19/20, the high probability of a clinically significant, sudden or life threatening deterioration of the following system(s) required my full and direct attention, intervention and personal management. The time I documented below is in addition to time spent performing reported procedures but includes the following listed in this critical care notation. Medical Decision Making - Genaro Inquiry Pt receiving controlled substance: Yes Genaro was queried for this patient: Yes Risks and benefits of using a controlled substance: were discussed with pt by me Vital Signs: 06/19/20 15:49 06/19/20 16:19 06/19/20 16:30 Temperature 98.2 F Temperature Source Oral Pulse Rate [Left Radial] 68 65 69 Respiratory Rate 18 20 16 Blood Pressure [Right Arm] 196/81 H 196/81 H 180/68 H Blood Pressure Mean [Right Arm] 119 119 105 Blood Pressure Source [Right Arm] Automatic Cuff Automatic Cuff Automatic Cuff Blood Pressure Position [Right Arm] Sitting Sitting Sitting 02 Sat by Pulse Oximetry 98 100 97 Oxygen Delivery Method Room Air - Lab Data Lab Results 06/19/20 16:35: WBC 12.1 H, RBC 4.21, Hgb 12.4, Hct 39.3, MCV 93.4, MCH 29.4, MCHC 31.5 L, RDW 13.1, Plt Count 435 H, MPV 8.0, Neut % (Auto) 84.4 H, Lymph % (Auto) 10.5, [place] % (Auto) 4.9, Eos % (Auto) 0.1, Baso % (Auto) 0.2, Neut # (Auto) 10.2 H, Lymph # (Auto) 1.3, [place] # (Auto) 0.6,
[2020-06-19 18:20] VITALS: BP 138/83; PULSE 67; RESP 20; TEMP 36.8; O2SAT 97
--- NOTE | 2020-06-25 14:05 | SW/DCPLANNER ---
I have received notification from Dr Cabral office this morning regarding this patient: family is interested in placement. I called and spoke with patients daughter (Maryan) regarding situation for this patient. Maryan stated that patient resides at home and has recently been admitted to [facility]. Maryan stated that patient is weak at home and is now interested in short term placement. Maryan understood that [facility] has no beds (Maryan made phone call yesterday) and [facility] is NOT in network with patients insurance. Family is agreeable to [facility]. I have faxed patient information to Anne at [facility]. Anne will follow up with Maryan once patient information is reviewed.
== END 2020-06-19 18:21 | disposition home or self-care (01) ==
PROVIDERS: Emergency Provider Emergency Medicine; PCP Emergency Medicine
DX: M79.604 Pain in right leg (principal); R07.89 Other chest pain; E11.9 Type 2 diabetes mellitus without complications; E78.5 Hyperlipidemia, unspecified; I10 Essential (primary) hypertension; Z79.899 Other long term (current) drug therapy
CPT/HCPCS: 80053; 85025; 96374; 96375; 99282; J2405

== ENCOUNTER → 2020-07-01 15:02 | Outpatient (CLI) | payer MEDICARE, SELFPAY ==
[2020-07-01 15:07] LABS: Microscopic, Urine URINE MICROSCOPIC (MICROSCOPIC)
[2020-07-01 16:16] LABS: Basophils # 0.1 K/mm3 (0-0.2); Basophils % 0.7 % (0.1-2.0); Eosinophils # 0.2 K/mm3 (0.0-0.4); Eosinophils % 1.8 % (0.1-12.0); Hemoglobin 11.9 g/dL (12.2-16.2); Lymphocytes # 1.6 K/mm3 (0.7-4.5); Lymphocytes % 16.1 % (10-50); Mean Corpuscular HGB Conc 32.1 g/dL (31.8-35.4); Mean Corpuscular Hemoglobin 29.3 pg (27.0-31.2); Mean Corpuscular Volume 91.2 fl (81-99); Mean Platelet Volume 8.2 fl (7.4-10.4); Monocytes # 0.6 K/mm3 (0.1-1.0); Monocytes % 5.7 % (1.7-9.3); Neutrophils # 7.3 K/mm3 (1.8-7.8); Neutrophils % 75.7 % (37.0-80.0); Platelet Count 317 K/mm3 (142-424); Red Blood Count 4.06 M/mm3 (4.20-5.40); Red Cell Distribution Width 13.3 % (11.5-17.5); White Blood Count 9.7 K/mm3 (4.8-10.8)
[2020-07-01 16:27] LABS: Appearance,Urine SL CLOUDY (Clear); Bilirubin,Urine Negative (Negative); Blood, Urine 1+ (Negative); Color,Urine YELLOW (Yellow); Glucose,Urine (UA) Negative (Negative); Ketones,Urine Negative (Negative); Leukocyte Esterase,Urine TRACE (Negative); Nitrate,Urine POSITIVE (Negative); PH,Urine 5.5 (5.0-8.5); Protein,Urine 3+ (Negative); Specific Gravity, Urine >= 1.030 (1.005-1.030); Urobilinogen,Urine 0.2 EU/dl (0.2)
[2020-07-01 16:55] LABS: Anion Gap 13.8 mEq/L (5-15); Blood Urea Nitrogen 31 mg/dl (7-17); Calcium 9.8 mg/dl (8.4-10.2); Carbon Dioxide 26 mmol/L (22.0-30.0); Chloride 106 mmol/L (98-107); Estimated Glomerular Filt Rate 40 ml/min (>60); GFR (African American) 49 ML/MIN (>60); Glucose 212 mg/dl (74-100); Phosphorous 5.1 mg/dl (2.5-4.5); Potassium 4.8 mmoL/L (3.5-5.1); Sodium 141 mmol/L (136-145)
[2020-07-01 17:03] LABS: Creatinine,Urine Random 215 mg/dL (Not Estab.); Hemoglobin A1C 9.4 % (4.0-6.0)
[2020-07-01 17:06] LABS: Intact Parathyroid Hormone 54.3 pg/mL (7.5-53.5)
[2020-07-01 17:11] LABS: 25-OH Vitamin D, Total 16.1 ng/mL (30-100)
[2020-07-01 20:04] LABS: Bacteria,Urine 4+ /lpf; RBC,Urine Occasional #/hpf (0-3); Squamous Epithelial Cell,Urine Occasional #/hpf (0-5)
== END ==
PROVIDERS: Emergency Medicine; Visit Provider Internal Medicine Nephrology
DX: E13.10 Other specified diabetes mellitus with ketoacidosis without coma (principal); N18.30 Chronic kidney disease, stage 3 unspecified; E55.9 Vitamin D deficiency, unspecified; Z79.4 Long term (current) use of insulin; R82.90 Unspecified abnormal findings in urine
CPT/HCPCS: 36415; 80069; 81001; 82306; 82570; 83036; 83970; 84155; 85025; 87086; 87088; 87186

== ENCOUNTER → 2020-07-02 13:20 | Outpatient (POV) | payer MEDICARE, SELFPAY | PROVIDERS: Visit Provider Internal Medicine Nephrology | DX: Z00.00 Encounter for general adult medical examination without abnormal findings (principal) ==

== ENCOUNTER → 2020-07-15 16:15 | Outpatient (CLI) | payer MEDICARE, SELFPAY ==
[2020-07-15 17:32] LABS: Basophils % 0.5 % (0.1-2.0); Eosinophils # 0.2 K/mm3 (0.0-0.4); Eosinophils % 2.2 % (0.1-12.0); Hematocrit 37.3 % (37.0-47.0); Lymphocytes # 1.7 K/mm3 (0.7-4.5); Lymphocytes % 21.7 % (10-50); Mean Corpuscular HGB Conc 32.2 g/dL (31.8-35.4); Mean Corpuscular Hemoglobin 29.4 pg (27.0-31.2); Mean Corpuscular Volume 91.5 fl (81-99); Mean Platelet Volume 7.6 fl (7.4-10.4); Monocytes # 0.5 K/mm3 (0.1-1.0); Monocytes % 6.1 % (1.7-9.3); Neutrophils # 5.3 K/mm3 (1.8-7.8); Neutrophils % 69.5 % (37.0-80.0); Platelet Count 349 K/mm3 (142-424); Red Blood Count 4.08 M/mm3 (4.20-5.40); Red Cell Distribution Width 13.5 % (11.5-17.5); White Blood Count 7.6 K/mm3 (4.8-10.8)
[2020-07-15 17:49] LABS: Alanine Aminotransferase 19 U/L (12-78); Albumin Level 3.8 g/dl (3.5-5.0); Albumin/Globulin Ratio 1.4 (1.1-1.8); Alkaline Phosphatase 90 U/L (38-126); Anion Gap 10.4 mEq/L (5-15); Aspartate Amino Transferase 19 U/L (14-36); Bilirubin,Total 0.4 mg/dl (0.2-1.3); Blood Urea Nitrogen 18 mg/dl (7-17); Calcium 9.4 mg/dl (8.4-10.2); Carbon Dioxide 29 mmol/L (22.0-30.0); Chloride 108 mmol/L (98-107); Estimated Glomerular Filt Rate 49 ml/min (>60); GFR (African American) 59 ML/MIN (>60); Globulin 2.8 g/dL (1.3-3.2); Glucose 158 mg/dl (74-100); Potassium 5.4 mmoL/L (3.5-5.1); Sodium 142 mmol/L (136-145); Total Protein,Serum 6.6 g/dl (6.3-8.2)
[2020-07-15 18:10] LABS: Coronavirus 19 IgG Antibody Negative (Negative); Coronavirus 19 IgM Antibody Negative (Negative)
[2020-07-15 18:20] LABS: Thyroid Stimulating Hormone 1.55 uIU/mL (0.465-4.68)
[2020-07-15 18:54] LABS: Vitamin B12 289 pg/mL (239-931)
[2020-07-15 19:28] LABS: Folate 9.02 ng/mL
[2020-07-17 12:59] LABS: Rapid Plasma Reagin Ab Titer Non Reactive (NonRea<1:1)
== END ==
PROVIDERS: Visit Provider Specialist
DX: Z01.818 Encounter for other preprocedural examination; Z20.822 Contact with and (suspected) exposure to COVID-19; G47.30 Sleep apnea, unspecified; G47.00 Insomnia, unspecified; G93.40 Encephalopathy, unspecified; R06.83 Snoring; R41.3 Other amnesia; Z68.33 Body mass index [BMI] 33.0-33.9, adult
CPT/HCPCS: 36415; 80053; 82607; 82746; 84443; 85025; 86328; 86592

== ENCOUNTER → 2020-07-16 20:18 | Outpatient (CLI) | payer MEDICARE, SELFPAY | PROVIDERS: PCP Emergency Medicine; Visit Provider Specialist | DX: G47.30 Sleep apnea, unspecified (principal); R41.82 Altered mental status, unspecified; R06.83 Snoring; G47.33 Obstructive sleep apnea (adult) (pediatric) | CPT/HCPCS: 95810 ==

== ENCOUNTER 2020-07-17 17:00 | Outpatient (RCR) | payer MEDICARE, SELFPAY ==
--- NOTE | 2020-07-08 18:03 | HMH.PTOPEV ---
PT Outpatient Evaluation Rehab PT Outpatient Evaluation Start: 07/08/20 17:38 Freq: Status: Active Protocol: Document 07/08/20 17:44 GEORGE (Rec: 07/08/20 18:03 DARIENKIRSTEN [id number]) Electronically Signed By Wagner Hill, PT 07/08/20 17:44 Outpatient Therapy Subjective History Subjective History Patient is a 74 year old female presenting to outpatient PT with reports of R hip/RLE pain that is of insidious onset starting approximately 2-3 months ago. Patient referred with diagnosis of R hip trochanteric bursitis. Patient also reports possibility of RLE DVT though all diagnosics/imaging/special tests were negative. Comorbidities include hx of HTN, HL, diabetes/neuropathy and R ankle fracture. Chief Complaint Pain Symptom Type Ache,Sharp Symptoms Relieved By Rest/Positioning,Prescription Meds Symptoms Aggravated By Standing,Bending/Stooping, Physical Activity,Walking Prior Functional Limitations None Current Functional Limitations Housework,Dressing,Sleeping, Standing,Sitting,Squatting, Recreation Activity,Walking, Stairs,Balance,Bending/ Stooping Symptom Description Constant but Variable Level of pain today (0-10) 8 Pain scale - at its best (0-10) 2 Pain scale - at its worst (0-10) 9 Hip/Knee Eval Gait Observation General Gait Pattern Observation Antalgic Gait,Ataxic Gait, Shuffling Step,Decrease Weight Bear (R) Assistive Device Assistive Devices Rolling / Wheeled Walker Palpation Tenderness right Knee Palpation Finding Tenderness Knee Palpation Overall Comment hip: greater trochanter 3/4 Hip Palpation Findings Tenderness MMT left Hip Flexion Strength Grade 4 Good Hip Abduction Strength Grade 4 Good Hip Adduction Strength Grade 4 Good Hip Extension Strength Grade 4 Good Hip External Rotation Strength Grade 4 Good Hip Internal Rotation Strength Grade 4 Good Knee Extension Strength Grade 4 Good Knee Flexion Strength Grade 4 Good right Hip Flexion Strength Grade 3+ Fair+ Hip Abduction Strength Grade 3+ Fair+ Hip Adduction Strengt
== END 2020-07-17 17:05 | disposition home or self-care (01) ==
LOC: PT 17:00
PROVIDERS: PCP Emergency Medicine; Visit Provider Orthopaedic Surgery
DX: M70.71 Other bursitis of hip, right hip (principal)
CPT/HCPCS: 97014; 97033; 97035; 97110; 97140; 97163; G0283

== ENCOUNTER → 2020-07-22 15:49 | Outpatient (CLI) | payer MEDICARE, SELFPAY ==
--- NOTE | 2020-07-22 15:50 | MR_ITS ---
PROCEDURE: MR LUMBAR SPINE WO CON CLINICAL INDICATION: back pain Rt leg pain [id number]. COMPARISON: CR XR LUMBAR SPINE MIN 4V from 06/07/2020 TECHNIQUE: Standard multiplanar multiecho sequences are performed without contrast. 3-D MIP and myelographic images are also rendered and reviewed FINDINGS: There is normal alignment. The spinal cord ends at the L1 level. L1-L2: Minimal bulging disc with mild facet and ligamentum hypertrophy. Prominent right lateral osteophytes noted at this region L2-L3: Facet ligamentum hypertrophy with mild bilateral lateral recess narrowing. L3-L4: Mild facet and ligamentum hypertrophy. L4-5: Degenerative disc disease with bulging disc with some type 1 endplate changes. There is cortical regularity of the inferior aspect of the L4 disc and superior aspect of the L5 disc which may be due to discogenic disease. A Schmorl's node is present in the inferior plate of L4. There is concentric bulging disc eccentric toward the right with a small right paracentral disc herniation with inferior extrusion. The disc is extruded inferiorly by 8 mm. There is severe narrowing of the right lateral recess with impingement upon the right L5 nerve root. Canal stenosis is present with moderate facet and ligamentum hypertrophy with moderate bilateral foraminal narrowing. L5-S1: Degenerative disc disease. Type 2 endplate changes. IMPRESSION: 1. Degenerative disc disease at L4-L5 with bulging disc with type 1 endplate changes. There is cortical regularity of the inferior aspect of the L4 disc and superior aspect of the L5 disc which may be due to discogenic disease. A Schmorl's node is present in the inferior plate of L4. There is concentric bulging disc eccentric toward the right with a small right paracentral disc herniation with inferior extrusion. The disc is extruded inferiorly by 8 mm. There is severe narrowing of the right lateral recess with impingement upon the right L5 nerve root. Canal stenosis is present with moderate facet and ligamentum hypertrophy with moderate bilateral foraminal narrowing 2. Other changes of lumbar spondylosis as described above. Dictated by: Onesimo Bean MD 07/23/2020 13:38 Onesimo Bean MD in [place] 07/23/2020 13:38
--- NOTE | 2020-07-22 15:50 | MR_ITS ---
PROCEDURE: MR HEAD/BRAIN WO CON CLINICAL INDICATION: memory loss Memory loss x1yr. Prior CT 06-06-17. COMPARISON: CT HEADWO CT head/brain wo con from 06/06/2017 TECHNIQUE: Routine multiplanar multi echo sequences are performed without gadolinium enhancement. FINDINGS: No midline shift, mass effect, intracranial hemorrhage, or hydrocephalus. There are few periventricular T2 white matter hyperintensities. Encephalomalacia changes present in the right basal ganglia. No evidence of acute infarction. The cerebellopontine angle, cerebellum, and brainstem have an unremarkable appearance. There is some nonspecific T2 hyperintensity within the jocelyn which may be due to ischemic gliotic change. No evidence of hydrocephalus. There are involutional changes of age with mild brain volume loss. The hippocampal gyri and temporal horns are unremarkable. The pituitary, optic chiasm, corpus callosum, and craniocervical junction have an unremarkable appearance. There is an old small lacunar infarction of the left thalamus. No mastoid effusion or sinus air-fluid level. IMPRESSION: 1. No acute intracranial findings. 2. Mild generalized atrophy with periventricular ischemic gliotic change with encephalomalacia change in the right basal ganglia and left thalamus consistent with old small lacunar infarctions Dictated by: Onesimo Bean MD 07/23/2020 12:03 Onesimo Bean MD in [place] 07/23/2020 12:03
== END ==
PROVIDERS: PCP Emergency Medicine; Visit Provider Specialist
DX: R41.3 Other amnesia; G93.40 Encephalopathy, unspecified; M54.9 Dorsalgia, unspecified; M54.5 Low back pain; G47.00 Insomnia, unspecified; R06.81 Apnea, not elsewhere classified; R06.83 Snoring; Z68.33 Body mass index [BMI] 33.0-33.9, adult
CPT/HCPCS: 70551; 72148; 76376

== ENCOUNTER → 2020-07-28 13:54 | Outpatient (CLI) | payer MEDICARE, SELFPAY ==
--- NOTE | 2020-07-28 13:57 | XR_ITS ---
PROCEDURE: XR DEXA AXIAL SKELETON CLINICAL HISTORY: post menopausal COMPARISON: No exams were available for comparison FINDINGS: The right hip BMD is 0.837 grams/centimeter squared with a T-score of -0.9. The left hip BMD is 0.776 grams/centimeter square with a T-score of -1.4. The lumbar spine BMD is 1.135 grams/centimeters square with a T-score of 0.8. The FRAX 10 year fracture risk measures Major osteoporotic fracture 7.9 percent Hip fracture 0.8 percent IMPRESSION: This patient is considered osteopenic according to the World Health Organization criteria. Bone density is between 10 and 25 percent below young normal. Fracture risk is moderate. Treatment is advised. Based on these results a follow-up exam is recommended in 2 year. Dictated by: Estela Stark 07/28/2020 16:24 Estela Stark in 07/28/2020 16:24
== END ==
PROVIDERS: PCP Emergency Medicine; Visit Provider Emergency Medicine
DX: Z78.0 Asymptomatic menopausal state (principal)
CPT/HCPCS: 77080

== ENCOUNTER → 2020-08-13 15:49 | Outpatient (POV) | payer MEDICARE, SELFPAY ==
[2020-08-13 16:02] VITALS: BP 132/74; PULSE 74; RESP 18; TEMP 36.8; O2SAT 98; BMI 38.4
--- NOTE | 2020-08-13 16:21 | HMH.PMCON ---
Assessment and Plan (1) Disc herniation Status: Chronic Category: Medical (2) Lumbar degenerative disc disease Status: Chronic Category: Medical Code(s): M51.36 - Other intervertebral disc degeneration, lumbar region (3) Lumbar radiculopathy Status: Chronic Category: Medical Code(s): M54.16 - Radiculopathy, lumbar region - Assessment and plan all Dx Assessment and Plan for all problems:: We will schedule the patient for neurosurgical consultation will also set her up for L4-L5 lumbar epidural steroid injection to help with her pain. I will follow up with her after this reassess her symptoms at that time she has been instructed to call the office if she has any issues prior to her next appointment. Dr. Otoole has reviewed this note and agrees with this plan of care. This note was dictated using voice recognition software and may contain errors or omissions HPI - Data of Consult Consult date: 08/13/20 Requesting Physician: Michelle Rivera APRN Primary Care Provider: Servando Esquivel MD - Consult Narrative Reason for consult: Back pain, right leg pain History of present illness: Ms. Ivey is a 75 year old female who presents today for consultation in regards to her low back and right leg pain. Patient has a recent MRI showing a disc herniation with an impingement on the right L5 nerve root. Patient and I discussed the options. She is on Xarelto we will find out if she can come off prior to injective therapy. We will move forward with a lumbar epidural steroid injection and a neurosurgical consultation. Patient has tried physical therapy however that has made it worse. Medications also have not assisted in treating her pain. CC: Michelle Rivera APRN [facility] History I have reviewed the patient's past medical history: Yes Medical History: Reports:: Diabetes Mellitus Type 2, Hyperlipidemia, Hypertension, Peripheral Artery Disease, Peripheral Vascular Disease Denies:: Cancer, Diabetes Mellitus Type 1, Internal Pacemaker, Lung Disease, MRSA, Seizures *Have you ever received a pneumonia vaccine?: Yes *Have you received a flu vaccine this season?: Yes Other Medical History: Reports: Arthritis Other Surgeries: Yes: No Previous Surgery, Diagnostic Lap, Hysterectomy-Partial, Other. No: Pacemaker Amputation: No Fractures: No - *Social History Last grade of school completed: High school graduate Smoking Status: Never smoker Alcohol Intake: never Substance Use Type: denies use *Occupational Status:: retired Housing: house Household Members: other *Travel in the last 8 weeks: None Family Hx:: Unable to obtain Review of Systems - Review of Systems ROS General: no recent weight change, no fever, no sleep disturbances Respiratory: no cough, no shortness of air, no recurring pulmonary infections Cardiovascular/Peripheral Vascular: No chest pain, No palpitations, no edema, no shortness of breath. Gastrointestinal: no new onset incontinence, normal bowel movements reported Genitourinary: no new onset incontinence Musculoskeletal: Back pain, right leg pain Psychiatric: normal mood/ affect Neurological: [denies new onset weakness in extremities], [denies new onset balance issues] Meds Home Medications Medication Instructions Recorded Confirmed Type Atorvastatin Calcium [Lipitor 20mg 20 mg PO HS 06/07/20 07/13/20 History Tab] Cholecalciferol (Vitamin D3) 5,000 unit PO DAILY 06/07/20 07/13/20 History [Vitamin D3] Insulin NPH Hum/Reg Insulin Hm 45 units SQ HS 06/07/20 07/13/20 History [Novolin 70-30 100 Unit/ml Vial] Aspirin [Aspirin 81mg EC Tab] 81 mg PO DAILY 30 Days #30 06/08/20 07/13/20 Rx tablet. insulin human U-100 NPH-regulr 75 unit SQ DAILY ml 07/02/20 07/13/20 History 70-30 mix 100 unit/mL subcutaneous susp lisinopril 2.5 mg tablet 2.5 mg PO DAILY #90 tab 07/02/20 07/13/20 Rx rivaroxaban 2.5 mg tablet 2.5 mg PO BID tab 07/02/20 07/13/20 Histo
== END ==
PROVIDERS: PCP Emergency Medicine; Visit Provider Clinical Nurse Specialist Family Health
DX: M51.16 Intervertebral disc disorders with radiculopathy, lumbar region (principal)
CPT/HCPCS: 99202; G0463

== ENCOUNTER → 2020-08-28 11:51 | Day surgery (SDC) | payer MEDICARE, SELFPAY ==
[2020-08-28 11:59] VITALS: BP 166/64; PULSE 65; RESP 18; TEMP 36.3; O2SAT 96; BMI 34.7
[2020-08-28 12:13] VITALS: BP 142/89; PULSE 85; RESP 18; O2SAT 98
--- NOTE | 2020-08-28 12:15 | HMH.PMPROC ---
- Procedure Date: 08/28/20 Time: 12:15 Anesthesiologist:: Karl Otoole MD Complications:: None Pre-procedure Diagnosis:: Degenerative disc disease of lumbar spine with lumbar radiculopathy symptoms Post-procedure Diagnosis:: Same Indications for Procedure:: Patient is a pleasant 75-year-old white female who we are treating for low back pain with lumbar radiculopathy symptoms. She has increasing pain in her back rating down the right side. Will do lumbar epidural steroid injection today to see if this will help with her pain symptoms. Procedure Details:: Informed consent was obtained and the risk and benefits of the procedure was explained to the patient. The patient was taken to the procedure room. The patient was placed prone on the procedure table. The patient was prepped and draped in sterile fashion. C-arm fluoroscopy was used to view the lumbar spine. Skin and subcutaneous tissues were anesthetized using lidocaine. I placed an 18-gauge epidural needle and advanced into the L4-L5 interspace using fluoroscopic guidance and [id number] to air. After confirmation of needle placement in the epidural space with dye I injected 2 mL of lidocaine 1.5% with Depo-Medrol 80 mg. Patient tolerated the procedure well with no complications. Plan and Disposition:: We will follow-up with her in 2 weeks. Will reevaluate symptoms at that time.
[2020-08-28 12:16] VITALS: BP 142/89; PULSE 85; RESP 18; O2SAT 98
== END ==
PROVIDERS: PCP Emergency Medicine; Visit Provider Anesthesiology
DX: M51.16 Intervertebral disc disorders with radiculopathy, lumbar region (principal)
CPT/HCPCS: 62323; J1040; Q9966

== ENCOUNTER → 2020-09-21 11:36 | Outpatient (POV) | payer MEDICARE, SELFPAY ==
[2020-09-21 11:49] VITALS: BP 158/93; PULSE 76; RESP 18; O2SAT 95; BMI 31.8
--- NOTE | 2020-09-21 12:01 | HMH.PAINSOAP ---
[facility] Pain Management SOAP Note Subjective:: Patient is a pleasant 75-year-old white female who are treating for low back pain with lumbar radiculopathy. Patient is doing extremely well rating her pain a 0 out of 10. Patient is following up after L4-L5 lumbar epidural steroid injection. She did well. At this time she would like to see how long this benefits her. She may want a repeat injection in the future. She is can call our office if she wants to move forward with that. ROS General: no recent weight change, no fever, no sleep disturbances Respiratory: no cough, no shortness of air, no recurring pulmonary infections Cardiovascular/Peripheral Vascular: No chest pain, No palpitations, no edema, no shortness of breath. Gastrointestinal: no new onset incontinence, normal bowel movements reported Genitourinary: no new onset incontinence Musculoskeletal: Back pain, leg pain Psychiatric: normal mood/ affect Neurological: [denies new onset weakness in extremities], [denies new onset balance issues] Objective:: Physical Exam General: Alert and oriented x3, no acute distress, pleasant and cooperative, [on room air] Lungs: Resps E/U, Symmetrical chest expansion, Eyes: PERRL Musculoskeletal: Flexion and extension of lumbar spine somewhat guarded secondary to pain, deep tendon reflexes normal, strength in upper and lower extremities [5/5], [abnormal gait noted] Neurological: speech clear, 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 Dr. Otoole has reviewed this note and agrees with this plan of care. This note was dictated using voice recognition software and may contain errors or omissions [facility] History I have reviewed the patient's past medical history: Yes Medical History: Reports:: Deep Vein Thrombosis, Diabetes Mellitus Type 2, Hyperlipidemia, Hypertension, Peripheral Artery Disease, Peripheral Vascular Disease Denies:: Cancer, Diabetes Mellitus Type 1, Internal Pacemaker, Lung Disease, MRSA, Seizures *Have you ever received a pneumonia vaccine?: Yes *Have you received a flu vaccine this season?: Yes Other Medical History: Reports: Arthritis Other Surgeries: Yes: No Previous Surgery, Diagnostic Lap, Hysterectomy-Partial, Other. No: Pacemaker Amputation: No Fractures: No - *Social History Smoking Status: Never smoker Alcohol Intake: never Substance Use Type: denies use *Occupational Status:: retired Housing: house Household Members: other *Travel in the last 8 weeks: None Family Hx:: Unable to obtain
== END ==
PROVIDERS: PCP Emergency Medicine; Visit Provider Clinical Nurse Specialist Family Health
DX: M51.16 Intervertebral disc disorders with radiculopathy, lumbar region (principal)
CPT/HCPCS: 99212; G0463

== ENCOUNTER 2020-12-02 10:43 | Emergency (ER) | payer MEDICARE, SELFPAY ==
[2020-12-02 10:44] VITALS: BP 138/91; PULSE 78; RESP 18; TEMP 37; O2SAT 97; BMI 35.4
--- NOTE | 2020-12-02 11:55 | HMH.EDUTC ---
[facility] [place] Clinical Impression: Exposure to COVID-19 virus Disposition: Home, Self-Care Condition on Discharge: Good Instructions: DI for COVID-19 (Suspected or Confirmed ), Preventing the Spread of Coronavirus Discharge Instructions Additional Instructions: Drink plenty of fluids. Take tylenol for pain or fever. Return if you begin to have difficulty breathing. Follow up with your regular doctor. GO TO THE ER FOR ANY WORSENING SYMPTOMS Referrals: Servando Esquivel MD [Primary Care Provider] - Time of Disposition: 11:55 Medical Decision Making - Medical Records Medical records reviewed: No: I reviewed the patient's medical records. - Genaro Inquiry Pt receiving controlled substance: No Vital Signs: 12/02/20 10:44 12/02/20 11:58 Temperature 98.6 F 98.6 F Temperature Source Oral Pulse Rate 78 Pulse Rate [Left Radial] 78 Respiratory Rate 18 18 Blood Pressure 138/91 H Blood Pressure [Right Arm] 138/91 H Blood Pressure Mean [Right Arm] 106 Blood Pressure Source Automatic Cuff Blood Pressure Source [Right Arm] Automatic Cuff Blood Pressure Position Sitting Blood Pressure Position [Right Arm] Sitting 02 Sat by Pulse Oximetry 97 Oxygen Delivery Method Room Air [facility] [place] - General Stated complaint: Covid Test Time Seen by Provider: 12/02/20 11:00 Mode of Arrival: Ambulatory Source of Information: Patient Limitations: No Limitations Description of Symptoms (Recalled from Triage Doc. by RN): covid test, no symptoms, exposure 2 days ago HEENT Symptoms (Recalled from RN notes): No Resp Symptoms (Recalled from RN notes): No Skin Symptoms (Recalled from RN notes): No MS Symptoms (Recalled from RN notes): No Functional Status (Recalled from RN notes): wnl - History of Present Illness Provider Complaint: She thinks that she has been exposed to covid-19 and she would llike to be tested. - Related Data Home Medications Medication Instructions Recorded Confirmed Cholecalciferol (Vitamin D3) 5,000 unit PO DAILY 06/07/20 10/05/20 [Vitamin D3] Insulin NPH Hum/Reg Insulin Hm 45 units SQ HS 06/07/20 10/05/20 [Novolin 70-30 100 Unit/ml Vial] lisinopril 10 mg tablet 10 mg PO DAILY tab 08/17/20 10/05/20 insulin human U-100 NPH-regulr 65 unit SQ DAILY ml 04/26/21 06/07/21 70-30 mix 100 unit/mL subcutaneous susp Aspirin [Aspirin 81mg EC Tab] 81 mg PO DAILY 08/28/20 10/05/20 Gabapentin [Gabapentin 100mg Cap] 100 mg PO TID 08/28/20 10/05/20 donepezil 5 mg tablet 5 mg PO tab 10/05/20 10/05/20 Previous Rx's Medication Instructions Recorded lidocaine 5 % topical patch 1 patch TOPICAL DAILY #30 each 07/13/20 acetaminophen 300 mg-codeine 30 mg 1 tab PO BID PRN #60 tab 08/24/20 tablet ondansetron HCl 4 mg tablet 4 mg PO BID PRN #60 tab 08/24/20 rivaroxaban 2.5 mg tablet 2.5 mg PO BID #180 tab 09/24/20 atorvastatin 20 mg tablet See Rx Instructions .ROUTE 11/03/20 .COMPLEX #90 tab linagliptin 5 mg tablet See Rx Instructions .ROUTE 11/03/20 .COMPLEX #30 tab alendronate 70 mg tablet 70 mg PO WEEKLY #90 tab 11/27/20 Allergies Allergy/AdvReac Type Severity Reaction Status Date / Time No Known Drug Allergies Allergy Unknown Verified 10/05/20 10:55 - Worker's Comp Is this a Worker's Comp case?: No [facility] History - Hepatitis A Screen Drug use history?: No High risk sexual behaviors?: No History of sexually transmitted infection?: No Currently employed?: No Childcare worker?: No Do you have indoor plumbing?: Yes Do you have electricity?: Yes Attestation statement:: This patient has been screened for Hepatitis A risk factors. I have reviewed the patient's past medical history: Yes Medical History: Reports:: Deep Vein Thrombosis, Diabetes Mellitus Type 2, Hyperlipidemia, Hypertension, Peripheral Artery Disease, Peripheral Vascular Disease Denies:: Cancer, Diabetes Mellitus Type 1, Internal Pacemaker, Lung Disease, MRSA, Seizures Other Medical His
[2020-12-02 11:58] VITALS: BP 138/91; PULSE 78; RESP 18; TEMP 37; O2SAT 97
== END 2020-12-02 11:59 | disposition home or self-care (01) ==
PROVIDERS: Emergency Provider Nurse Practitioner Family; PCP Emergency Medicine
DX: Z20.822 Contact with and (suspected) exposure to COVID-19 (principal); E11.9 Type 2 diabetes mellitus without complications; I10 Essential (primary) hypertension; E78.5 Hyperlipidemia, unspecified
CPT/HCPCS: G0463; 99202; U0003

== ENCOUNTER 2020-12-08 16:06 | Emergency (ER) | payer MEDICARE, SELFPAY ==
[2020-12-08 16:45] VITALS: BP 160/82; PULSE 66; RESP 18; TEMP 36.7; O2SAT 97; BMI 34.7
--- NOTE | 2020-12-08 17:23 | HMH.EDUTC ---
[facility] [place] Disposition Clinical Impression: Exposure to COVID-19 virus Disposition: Home, Self-Care Condition on Discharge: Good Instructions: Preventing the Spread of Coronavirus Discharge Instructions Additional Instructions: Drink plenty of fluids. Take tylenol for pain or fever. Return if you begin to have difficulty breathing. Follow up with your regular doctor. GO TO THE ER FOR ANY WORSENING SYMPTOMS Quarantine until you know the results of your covid-19 test. If it is positive, the health department should call you and give you further instructions about your length of Quarantine and other thing. Referrals: Servando Esquivel MD [Primary Care Provider] - Time of Disposition: 17:24 Medical Decision Making - Medical Records Medical records reviewed: No: I reviewed the patient's medical records. - Genaro Inquiry Pt receiving controlled substance: No Vital Signs: 12/08/20 16:45 12/08/20 17:29 Temperature 98.0 F 98.0 F Temperature Source Temporal Artery Scan Pulse Rate 66 Pulse Rate [Right Brachial] 66 Respiratory Rate 18 18 Blood Pressure 160/82 H Blood Pressure [Right Arm] 160/82 H Blood Pressure Mean [Right Arm] 108 Blood Pressure Source [Right Arm] Automatic Cuff Blood Pressure Position [Right Arm] Sitting 02 Sat by Pulse Oximetry 97 Oxygen Delivery Method Room Air Orders (Tests/Meds): ORDERS Category Date Time Status Covid-19 Nasal PCR ([facility]) Routine Lab 12/08/20 16:55 Received [facility] [place] HPI - General Stated complaint: covid test Time Seen by Provider: 12/08/20 17:00 Mode of Arrival: Ambulatory Source of Information: Patient Limitations: No Limitations Description of Symptoms (Recalled from Triage Doc. by RN): COVID TEST D/T EXPOSURE. DENIES SYMPTOMS HEENT Symptoms (Recalled from RN notes): No Resp Symptoms (Recalled from RN notes): No Skin Symptoms (Recalled from RN notes): No MS Symptoms (Recalled from RN notes): No Functional Status (Recalled from RN notes): WNL - History of Present Illness Provider Complaint: She states that she was exposed to covid last week. She denies any symptoms. - Related Data Home Medications Medication Instructions Recorded Confirmed Cholecalciferol (Vitamin D3) 5,000 unit PO DAILY 06/07/20 10/05/20 [Vitamin D3] Insulin NPH Hum/Reg Insulin Hm 45 units SQ HS 06/07/20 10/05/20 [Novolin 70-30 100 Unit/ml Vial] lisinopril 10 mg tablet 10 mg PO DAILY tab 08/17/20 10/05/20 insulin human U-100 NPH-regulr 65 unit SQ DAILY ml 08/24/20 10/05/20 70-30 mix 100 unit/mL subcutaneous susp Aspirin [Aspirin 81mg EC Tab] 81 mg PO DAILY 08/28/20 10/05/20 Gabapentin [Gabapentin 100mg Cap] 100 mg PO TID 08/28/20 10/05/20 donepezil 5 mg tablet 5 mg PO tab 10/05/20 10/05/20 Previous Rx's Medication Instructions Recorded lidocaine 5 % topical patch 1 patch TOPICAL DAILY #30 each 07/13/20 acetaminophen 300 mg-codeine 30 mg 1 tab PO BID PRN #60 tab 08/24/20 tablet ondansetron HCl 4 mg tablet 4 mg PO BID PRN #60 tab 08/24/20 rivaroxaban 2.5 mg tablet 2.5 mg PO BID #180 tab 09/24/20 atorvastatin 20 mg tablet See Rx Instructions .ROUTE 11/03/20 .COMPLEX #90 tab linagliptin 5 mg tablet See Rx Instructions .ROUTE 11/03/20 .COMPLEX #30 tab alendronate 70 mg tablet 70 mg PO WEEKLY #90 tab 11/27/20 Allergies Allergy/AdvReac Type Severity Reaction Status Date / Time No Known Drug Allergies Allergy Unknown Verified 10/05/20 10:55 - Worker's Comp Is this a Worker's Comp case?: No [facility] History - Hepatitis A Screen Drug use history?: No High risk sexual behaviors?: No History of sexually transmitted infection?: No Currently employed?: No Childcare worker?: No Do you have indoor plumbing?: Yes Do you have electricity?: Yes Attestation statement:: This patient has been screened for Hepatitis A risk factors. I have reviewed the patient's past medical history: Yes Medical History: Reports:: Deep Vein Thrombosi
[2020-12-08 17:29] VITALS: BP 160/82; PULSE 66; RESP 18; TEMP 36.7; O2SAT 97
== END 2020-12-08 17:34 | disposition home or self-care (01) ==
PROVIDERS: Emergency Provider Nurse Practitioner Family; PCP Emergency Medicine
DX: Z20.822 Contact with and (suspected) exposure to COVID-19 (principal); E11.9 Type 2 diabetes mellitus without complications; E78.5 Hyperlipidemia, unspecified; I10 Essential (primary) hypertension; Z79.899 Other long term (current) drug therapy
CPT/HCPCS: G0463; 99202; U0003